=== PATIENT | female | born 1935 | race Caucasian/White ===

== ENCOUNTER 2018-02-07 12:19 | Emergency (ER) | payer MEDICARE ==
[~2018-02-07] VITALS: Ht 172.7 cm; Wt 158.8 kg
[~2018-02-07 12:19] MED LIST: ALBU3IS INH; ALBU90OI INH; AMOCLA500 PO; AMOX500; AMOX500 PO; ASPI325; ASPI325EC PO; ATOR10 PO; AZIT250 PO; AZIT500 PO; Augmentin 875-1 EACH PO; DOXY100 PO; FLUT.05NI; HYDACE5; HYDCHL25 PO; HYDGUAL120 PO; IBUP200; MULVITMIND PO; OXYACE5T PO; OXYGEN USE; PRED20 PO; PROCODE120 PO; RXOXYACE PO; RXPROM25 PO; SPIHYD; SULTRIDS PO; TAMS.4ER PO; VERA240ER; VERA240ER PO
== END 2018-02-07 13:56 | disposition home or self-care (01) ==
LOC: ER 12:19
DX: J34.89 Other specified disorders of nose and nasal sinuses (principal); I10 Essential (primary) hypertension; J44.9 Chronic obstructive pulmonary disease, unspecified; Z87.01 Personal history of pneumonia (recurrent); Z88.1 Allergy status to other antibiotic agents; Z88.8 Allergy status to other drugs, medicaments and biological substances; Z79.51 Long term (current) use of inhaled steroids; Z79.82 Long term (current) use of aspirin; Z79.899 Other long term (current) drug therapy
CPT/HCPCS: 99282

== ENCOUNTER 2018-03-10 18:35 | Inpatient (IN) | payer MEDICARE ==
[~2018-03-10] VITALS: Ht 172.7 cm; Wt 155.7 kg
[~2018-03-10 18:35] MED LIST changes: +ASPI325 PO
[2018-03-10 20:00] LABS: BASOPHILS ABSOLUTE AUTO 0.02 K/mm3 (0.00-0.23); BASOPHILS PERCENT AUTO 0 % (0-2); EOSINOPHILS ABSOLUTE AUTO 0.26 K/mm3 (0.00-0.68); EOSINOPHILS PERCENT AUTO 3 % (0-6); Hematocrit 40.3 % (33.0-51.0); Hemoglobin 12.4 g/dL (11.5-16.0); IMMATURE GRAN ABSOLUTE AUTO 0.04 K/mm3 (0.00-0.10); IMMATURE GRAN PERCENT AUTO 0 % (0-1); LYMPHOCYTES ABSOLUTE AUTO 1.65 K/mm3 (0.84-5.20); LYMPHOCYTES PERCENT AUTO 16 % (21-46); MONOCYTES PERCENT AUTO 13 % (4-13); Mean Corpuscular HGB 29.3 pg (26.0-34.0); Mean Corpuscular HGB Conc 30.8 g/dL (31.5-36.5); Mean Corpuscular Volume 95 fL (80-100); Mean Platelet Volume 11.5 fL (9.1-12.4); NEUTROPHILS ABSOLUTE AUTO 6.89 K/mm3 (1.96-9.15); NEUTROPHILS PERCENT AUTO 68 % (41-73); Platelet Count 129 K/mm3 (150-400); RDW Coefficient Variation 14.1 % (11.7-14.2); RDW Standard Deviation 49.3 fL (35.1-46.3); Red Blood Cell Count 4.23 M/mm3 (3.80-5.20); White Blood Cell Count 10.16 K/mm3 (4.00-11.30)
[2018-03-10 20:30] LABS: Alanine Aminotransfer (ALT/SGP 10 U/L (12-78); Albumin, Blood 2.9 g/dL (3.4-5.0); Albumin/Globulin Ratio 0.7 (0.8-1.8); Alk Phos 80 U/L (50-136); Anion Gap 6 mmol/L (6-16); Aspartate Aminotrans (AST/SGOT 8 U/L (12-37); Bilirubin, Total 1.5 mg/dL (0.1-1.0); Blood Urea Nitrogen 17 mg/dL (8-24); CO2, Blood 29 mmol/L (21-32); Calcium, Blood 8.8 mg/dL (8.5-10.1); Chloride, Blood 112 mmol/L (98-108); Creatinine, Blood 0.74 mg/dL (0.40-1.00); Glomerular Filtration Rate >60 (60-); Glucose, Blood 119 mg/dL (70-99); Potassium, Blood 3.8 mmol/L (3.5-5.5); Sodium, Blood 147 mmol/L (136-145); Total Protein, Blood 6.9 g/dL (6.4-8.2); Troponin I <0.015 ng/mL (0.000-0.040)
[2018-03-10] MEDS ORDERED: ESCI10 PO (20:56)
[2018-03-10] MEDS ORDERED: CLON.5 PO (20:56)
[2018-03-10] MEDS ORDERED: FURO20 PO (20:57)
[2018-03-10] MEDS ORDERED: POTCHL10ER PO (20:57)
[2018-03-10 23:43] LABS: Adenovirus Not Detected (NOT DETECT); Bordetella pertussis Not Detected (NOT DETECT); Chlamydophila pneumoniae Not Detected (NOT DETECT); Coronavirus 229E Not Detected (NOT DETECT); Coronavirus HKU1 Not Detected (NOT DETECT); Coronavirus NL63 Not Detected (NOT DETECT); Coronavirus OC43 Not Detected (NOT DETECT); Human Metapneumovirus Not Detected (NOT DETECT); Human Rhinovirus/Enterovirus Not Detected (NOT DETECT); Influenza A/2009-H1 Not Detected (NOT DETECT); Influenza A/H1 Not Detected (NOT DETECT); Influenza A/H3 Not Detected (NOT DETECT); Influenza B Not Detected (NOT DETECT); Mycoplasma pneumoniae Not Detected (NOT DETECT); Parainfluenza Virus 1 Not Detected (NOT DETECT); Parainfluenza Virus 2 Not Detected (NOT DETECT); Parainfluenza Virus 3 Not Detected (NOT DETECT); Parainfluenza Virus 4 Not Detected (NOT DETECT); Respiratory Syncytial Virus Not Detected (NOT DETECT)
[2018-03-11 00:31] LABS: Influenza A Negative (NEGATIVE); Influenza B Negative (NEGATIVE)
[2018-03-11 01:27] LABS: Influenza A Not Detected (NOT DETECT)
[2018-03-11 05:03] LABS: Hematocrit 40.6 % (33.0-51.0); Hemoglobin 12.5 g/dL (11.5-16.0); Mean Corpuscular HGB 29.4 pg (26.0-34.0); Mean Corpuscular HGB Conc 30.8 g/dL (31.5-36.5); Mean Corpuscular Volume 96 fL (80-100); RDW Coefficient Variation 14.2 % (11.7-14.2); RDW Standard Deviation 50.1 fL (35.1-46.3); Red Blood Cell Count 4.25 M/mm3 (3.80-5.20); White Blood Cell Count 6.87 K/mm3 (4.00-11.30)
[2018-03-11 05:05] LABS: BASOPHILS ABSOLUTE AUTO 0.01 K/mm3 (0.00-0.23); BASOPHILS PERCENT AUTO 0 % (0-2); EOSINOPHILS ABSOLUTE AUTO 0.01 K/mm3 (0.00-0.68); EOSINOPHILS PERCENT AUTO 0 % (0-6); IMMATURE GRAN ABSOLUTE AUTO 0.05 K/mm3 (0.00-0.10); IMMATURE GRAN PERCENT AUTO 1 % (0-1); LYMPHOCYTES ABSOLUTE AUTO 0.78 K/mm3 (0.84-5.20); LYMPHOCYTES PERCENT AUTO 11 % (21-46); MONOCYTES ABSOLUTE AUTO 0.14 K/mm3 (0.16-1.47); MONOCYTES PERCENT AUTO 2 % (4-13); NEUTROPHILS PERCENT AUTO 86 % (41-73)
[2018-03-11 05:07] LABS: Mean Platelet Volume 11.1 fL (9.1-12.4); Platelet Count 131 K/mm3 (150-400)
[2018-03-11 05:25] LABS: Albumin, Blood 2.8 g/dL (3.4-5.0); Anion Gap 3 mmol/L (6-16); Blood Urea Nitrogen 16 mg/dL (8-24); Bun/Creatinine Ratio 23.8 (12.0-20.0); CO2, Blood 30 mmol/L (21-32); Calcium, Blood 8.7 mg/dL (8.5-10.1); Chloride, Blood 111 mmol/L (98-108); Creatinine, Blood 0.67 mg/dL (0.40-1.00); Glomerular Filtration Rate >60 (60-); Glucose, Blood 145 mg/dL (70-99); Phosphorus, Blood 2.5 mg/dL (2.5-4.9); Potassium, Blood 4.1 mmol/L (3.5-5.5); Sodium, Blood 144 mmol/L (136-145)
[2018-03-13] MEDS ORDERED: DOXY100 PO (10:29)
[2018-03-13] MEDS ORDERED: CEPH500 PO (10:29)
== END 2018-03-13 13:30 | disposition home or self-care (01) | DRG 177 ==
LOC: ER 18:35 → MEDS 20:43 → ENPENDDIS 03-13 09:30 → MEDS 03-13 13:30
PROVIDERS: Emergency Medicine; Family Medicine
DX: J69.0 Pneumonitis due to inhalation of food and vomit (principal); J96.01 Acute respiratory failure with hypoxia; J44.0 Chronic obstructive pulmonary disease with (acute) lower respiratory infection; L03.115 Cellulitis of right lower limb; Z68.43 Body mass index [BMI] 50.0-59.9, adult; L03.116 Cellulitis of left lower limb; J44.1 Chronic obstructive pulmonary disease with (acute) exacerbation; J18.9 Pneumonia, unspecified organism; J84.9 Interstitial pulmonary disease, unspecified; I10 Essential (primary) hypertension; I89.0 Lymphedema, not elsewhere classified; G47.33 Obstructive sleep apnea (adult) (pediatric); E66.01 Morbid (severe) obesity due to excess calories
CPT/HCPCS: 36415; 71045; 71260; 80053; 80069; 83605; 83880; 84484; 85025; 85379; 87040; 87486; 87581; 87633; 87798; 87804; 93005; 93010; 93970; 94640; 94760; 94761; 96374; 96375; 99285; C1751; J0456; J0696; J1650; J2543; J2920; J2930; J7030; J7050; Q9967

== ENCOUNTER 2018-06-28 12:00 | Inpatient (IN) | payer MEDICARE ==
[~2018-06-28] VITALS: Ht 172.7 cm; Wt 155.7 kg
[~2018-06-28 12:00] MED LIST changes: -ASPI325 PO; +Aspirin EC81 MG PO; +CEPH500 PO; +CLON.5 PO; +ESCI10 PO; +FURO20 PO; +POTCHL10ER PO
[2018-06-28 12:44] LABS: BASOPHILS ABSOLUTE AUTO 0.02 K/mm3 (0.00-0.23); BASOPHILS PERCENT AUTO 0 % (0-2); EOSINOPHILS ABSOLUTE AUTO 0.25 K/mm3 (0.00-0.68); EOSINOPHILS PERCENT AUTO 4 % (0-6); Hematocrit 41.9 % (33.0-51.0); Hemoglobin 12.8 g/dL (11.5-16.0); IMMATURE GRAN ABSOLUTE AUTO 0.02 K/mm3 (0.00-0.10); IMMATURE GRAN PERCENT AUTO 0 % (0-1); LYMPHOCYTES ABSOLUTE AUTO 1.34 K/mm3 (0.84-5.20); LYMPHOCYTES PERCENT AUTO 24 % (21-46); MONOCYTES ABSOLUTE AUTO 0.57 K/mm3 (0.16-1.47); MONOCYTES PERCENT AUTO 10 % (4-13); Mean Corpuscular HGB Conc 30.5 g/dL (31.5-36.5); Mean Corpuscular Volume 95 fL (80-100); Mean Platelet Volume 10.7 fL (9.1-12.4); NEUTROPHILS ABSOLUTE AUTO 3.44 K/mm3 (1.96-9.15); NEUTROPHILS PERCENT AUTO 61 % (41-73); Platelet Count 160 K/mm3 (150-400); RDW Coefficient Variation 13.9 % (11.7-14.2); RDW Standard Deviation 48.4 fL (35.1-46.3); Red Blood Cell Count 4.41 M/mm3 (3.80-5.20); White Blood Cell Count 5.64 K/mm3 (4.00-11.30)
[2018-06-28 13:00] LABS: Alanine Aminotransfer (ALT/SGP 12 U/L (12-78); Albumin, Blood 2.9 g/dL (3.4-5.0); Albumin/Globulin Ratio 0.7 (0.8-1.8); Alk Phos 89 U/L (50-136); Anion Gap 5 mmol/L (6-16); Aspartate Aminotrans (AST/SGOT 13 U/L (12-37); Bilirubin, Total 0.8 mg/dL (0.1-1.0); Blood Urea Nitrogen 17 mg/dL (8-24); CO2, Blood 30 mmol/L (21-32); Calcium, Blood 8.8 mg/dL (8.5-10.1); Chloride, Blood 112 mmol/L (98-108); Creatinine, Blood 0.71 mg/dL (0.40-1.00); Globulin, Blood 4.2 g/dL (2.2-4.0); Glomerular Filtration Rate >60 (60-); Glucose, Blood 109 mg/dL (70-99); Lactate Dehydrogenase (Ld),Bld 175 U/L (100-240); Potassium, Blood 3.7 mmol/L (3.5-5.5); Sodium, Blood 147 mmol/L (136-145); Total Protein, Blood 7.1 g/dL (6.4-8.2); Troponin I <0.015 ng/mL (0.000-0.040)
[2018-06-29 05:09] LABS: BASOPHILS ABSOLUTE AUTO 0.01 K/mm3 (0.00-0.23); BASOPHILS PERCENT AUTO 0 % (0-2); EOSINOPHILS PERCENT AUTO 0 % (0-6); Hematocrit 39.7 % (33.0-51.0); Hemoglobin 12.2 g/dL (11.5-16.0); IMMATURE GRAN ABSOLUTE AUTO 0.03 K/mm3 (0.00-0.10); IMMATURE GRAN PERCENT AUTO 1 % (0-1); LYMPHOCYTES ABSOLUTE AUTO 0.83 K/mm3 (0.84-5.20); LYMPHOCYTES PERCENT AUTO 19 % (21-46); MONOCYTES ABSOLUTE AUTO 0.09 K/mm3 (0.16-1.47); MONOCYTES PERCENT AUTO 2 % (4-13); Mean Corpuscular HGB 28.6 pg (26.0-34.0); Mean Corpuscular HGB Conc 30.7 g/dL (31.5-36.5); Mean Corpuscular Volume 93 fL (80-100); Mean Platelet Volume 11.1 fL (9.1-12.4); NEUTROPHILS ABSOLUTE AUTO 3.34 K/mm3 (1.96-9.15); NEUTROPHILS PERCENT AUTO 78 % (41-73); Platelet Count 142 K/mm3 (150-400); RDW Coefficient Variation 13.5 % (11.7-14.2); RDW Standard Deviation 46.3 fL (35.1-46.3); Red Blood Cell Count 4.26 M/mm3 (3.80-5.20)
[2018-06-29 05:32] LABS: Anion Gap 6 mmol/L (6-16); Blood Urea Nitrogen 18 mg/dL (8-24); Bun/Creatinine Ratio 26.6 (12.0-20.0); CO2, Blood 31 mmol/L (21-32); Calcium, Blood 8.7 mg/dL (8.5-10.1); Chloride, Blood 110 mmol/L (98-108); Creatinine, Blood 0.68 mg/dL (0.40-1.00); Glomerular Filtration Rate >60 (60-); Glucose, Blood 160 mg/dL (70-99); Potassium, Blood 4.1 mmol/L (3.5-5.5); Sodium, Blood 147 mmol/L (136-145)
[2018-06-30] MEDS ORDERED: Flonase 0.05% N16 GM (11:09)
[2018-06-30] MEDS ORDERED: DULERA 200 MCG/13 GM INH (11:09)
[2018-06-30] MEDS ORDERED: PRED10 PO (11:11)
[2018-06-30] MEDS ORDERED: TIOT18 INH (11:12)
== END 2018-06-30 13:38 | disposition home or self-care (01) | DRG 189 ==
LOC: ER 12:00 → MEDS 15:49
PROVIDERS: Internal Medicine; Physician Assistant
DX: J96.21 Acute and chronic respiratory failure with hypoxia (principal); J44.1 Chronic obstructive pulmonary disease with (acute) exacerbation; Z68.43 Body mass index [BMI] 50.0-59.9, adult; E66.2 Morbid (severe) obesity with alveolar hypoventilation; I50.32 Chronic diastolic (congestive) heart failure; J84.9 Interstitial pulmonary disease, unspecified; I89.0 Lymphedema, not elsewhere classified; I11.0 Hypertensive heart disease with heart failure
CPT/HCPCS: 36415; 71046; 80048; 80053; 83615; 83880; 84484; 85025; 93005; 93010; 93306; 94640; 94644; 94760; 94761; 94762; 96365; 96366; 96375; 99285-25; J1650; J2930; J3475

== ENCOUNTER 2018-08-01 14:13 | Emergency (ER) | payer MEDICARE ==
[~2018-08-01] VITALS: Ht 172.7 cm; Wt 158.8 kg
[~2018-08-01 14:13] MED LIST changes: +DULERA 200 MCG/13 GM INH; +Flonase 0.05% N16 GM; +PRED10 PO; +TIOT18 INH
[2018-08-01] MEDS ORDERED: Augmentin 875-1 EACH PO (16:20)
[2018-08-01] MEDS ORDERED: PRED20 PO (16:20)
== END 2018-08-01 17:15 | disposition home or self-care (01) ==
LOC: ER 14:13
DX: J44.1 Chronic obstructive pulmonary disease with (acute) exacerbation (principal); J32.9 Chronic sinusitis, unspecified; I10 Essential (primary) hypertension; Z88.8 Allergy status to other drugs, medicaments and biological substances; Z88.1 Allergy status to other antibiotic agents; Z79.899 Other long term (current) drug therapy; Z79.82 Long term (current) use of aspirin
CPT/HCPCS: 36415; 71046; 93005; 93010; 94640; 96374; 99283-25; J2930

== ENCOUNTER 2018-08-11 13:20 | Emergency (ER) | payer MEDICARE ==
[~2018-08-11] VITALS: Ht 172.7 cm; Wt 158.8 kg
[2018-08-11] MEDS ORDERED: LOSA25 (13:47)
== END 2018-08-11 15:08 | disposition home or self-care (01) ==
LOC: ER 13:20
DX: M79.662 Pain in left lower leg (principal); I10 Essential (primary) hypertension; Z88.8 Allergy status to other drugs, medicaments and biological substances; Z88.1 Allergy status to other antibiotic agents; Z79.899 Other long term (current) drug therapy; Z79.82 Long term (current) use of aspirin; Z79.51 Long term (current) use of inhaled steroids
CPT/HCPCS: 93971; 99284-25

== ENCOUNTER 2019-01-14 18:39 | Emergency (ER) | payer MEDICARE ==
[~2019-01-14] VITALS: Ht 172.7 cm; Wt 158.8 kg
[~2019-01-14 18:39] MED LIST changes: +AMLO5 PO; +BENZ100A PO; +LOSA25; +LOSA50 PO
[2019-01-14 19:24] LABS: BASOPHILS ABSOLUTE AUTO 0.01 K/mm3 (0.00-0.23); BASOPHILS PERCENT AUTO 0 % (0-2); EOSINOPHILS PERCENT AUTO 3 % (0-6); Hematocrit 37.2 % (33.0-51.0); Hemoglobin 11.1 g/dL (11.5-16.0); IMMATURE GRAN ABSOLUTE AUTO 0.02 K/mm3 (0.00-0.10); IMMATURE GRAN PERCENT AUTO 1 % (0-1); LYMPHOCYTES ABSOLUTE AUTO 0.74 K/mm3 (0.84-5.20); LYMPHOCYTES PERCENT AUTO 20 % (21-46); MONOCYTES ABSOLUTE AUTO 0.78 K/mm3 (0.16-1.47); MONOCYTES PERCENT AUTO 22 % (4-13); Mean Corpuscular HGB 28.5 pg (26.0-34.0); Mean Corpuscular HGB Conc 29.8 g/dL (31.5-36.5); Mean Corpuscular Volume 96 fL (80-100); Mean Platelet Volume 10.7 fL (9.1-12.4); NEUTROPHILS ABSOLUTE AUTO 1.98 K/mm3 (1.96-9.15); NEUTROPHILS PERCENT AUTO 54 % (41-73); Platelet Count 109 K/mm3 (150-400); RDW Coefficient Variation 14.7 % (11.7-14.2); RDW Standard Deviation 51.8 fL (35.1-46.3); Red Blood Cell Count 3.89 M/mm3 (3.80-5.20); White Blood Cell Count 3.63 K/mm3 (4.00-11.30)
[2019-01-14 20:01] LABS: Alanine Aminotransfer (ALT/SGP 11 U/L (12-78); Albumin, Blood 2.9 g/dL (3.4-5.0); Albumin/Globulin Ratio 0.7 (0.8-1.8); Alk Phos 75 U/L (50-136); Anion Gap 1 mmol/L (6-16); Aspartate Aminotrans (AST/SGOT 9 U/L (12-37); Bilirubin, Total 0.6 mg/dL (0.1-1.0); Blood Urea Nitrogen 18 mg/dL (8-24); Bun/Creatinine Ratio 26.4 (12.0-20.0); CO2, Blood 35 mmol/L (21-32); Calcium, Blood 8.7 mg/dL (8.5-10.1); Chloride, Blood 109 mmol/L (98-108); Creatinine, Blood 0.68 mg/dL (0.40-1.00); Globulin, Blood 3.9 g/dL (2.2-4.0); Glomerular Filtration Rate >60 (60-); Glucose, Blood 87 mg/dL (70-99); Sodium, Blood 145 mmol/L (136-145); Total Protein, Blood 6.8 g/dL (6.4-8.2)
[2019-01-14 20:52] LABS: Influenza A Positive (NEGATIVE); Influenza B Negative (NEGATIVE)
[2019-01-14] MEDS ORDERED: Tamiflu75 MG PO (21:09)
== END 2019-01-14 21:55 | disposition home or self-care (01) ==
LOC: ER 18:39
PROVIDERS: Emergency Medicine
DX: J10.00 Influenza due to other identified influenza virus with unspecified type of pneumonia (principal); J44.9 Chronic obstructive pulmonary disease, unspecified; I10 Essential (primary) hypertension; Z79.899 Other long term (current) drug therapy; Z79.82 Long term (current) use of aspirin
CPT/HCPCS: 36415; 71046; 80053; 83880; 84484; 85025; 87804; 93005; 93010; 94640; 99284-25

== ENCOUNTER 2019-07-20 00:26 | Day surgery (SDC) | payer MEDICARE ==
[~2019-07-20 00:26] MED LIST changes: +Tamiflu75 MG PO
== END 2019-07-20 23:09 | disposition home or self-care (01) ==
LOC: WOUND 00:26
DX: I89.0 Lymphedema, not elsewhere classified (principal); M79.671 Pain in right foot; I11.0 Hypertensive heart disease with heart failure; I50.32 Chronic diastolic (congestive) heart failure; E66.01 Morbid (severe) obesity due to excess calories; Z68.43 Body mass index [BMI] 50.0-59.9, adult; Z88.1 Allergy status to other antibiotic agents; Z91.048 Other nonmedicinal substance allergy status
CPT/HCPCS: G0463

== ENCOUNTER 2019-12-03 10:42 | Inpatient (IN) | payer MEDICARE ==
[~2019-12-03] VITALS: Ht 172.7 cm; Wt 157.4 kg
[2019-12-03] MEDS ORDERED: BUDE6HFA INH ×2 (10:59→18:08)
[2019-12-03] MEDS ORDERED: Bystolic2.5 MG PO (11:00)
[2019-12-03] MEDS ORDERED: VERAPAMIL SR240 M1 PO (11:00)
[2019-12-03] MEDS ORDERED: K-Dur10 MEQ (11:00)
[2019-12-03 11:46] LABS: BASOPHILS ABSOLUTE AUTO 0.02 K/mm3 (0.00-0.23); BASOPHILS PERCENT AUTO 0 % (0-2); EOSINOPHILS ABSOLUTE AUTO 0.18 K/mm3 (0.00-0.68); EOSINOPHILS PERCENT AUTO 2 % (0-6); Hematocrit 35.6 % (33.0-51.0); Hemoglobin 10.6 g/dL (11.5-16.0); IMMATURE GRAN ABSOLUTE AUTO 0.03 K/mm3 (0.00-0.10); IMMATURE GRAN PERCENT AUTO 0 % (0-1); LYMPHOCYTES ABSOLUTE AUTO 1.42 K/mm3 (0.84-5.20); LYMPHOCYTES PERCENT AUTO 19 % (21-46); MONOCYTES ABSOLUTE AUTO 0.88 K/mm3 (0.16-1.47); MONOCYTES PERCENT AUTO 12 % (4-13); Mean Corpuscular HGB 28.6 pg (26.0-34.0); Mean Corpuscular HGB Conc 29.8 g/dL (31.5-36.5); Mean Corpuscular Volume 96 fL (80-100); Mean Platelet Volume 11.1 fL (9.1-12.4); NEUTROPHILS ABSOLUTE AUTO 4.94 K/mm3 (1.96-9.15); NEUTROPHILS PERCENT AUTO 66 % (41-73); Platelet Count 161 K/mm3 (150-400); RDW Coefficient Variation 14.1 % (11.7-14.2); RDW Standard Deviation 50.1 fL (35.1-46.3); White Blood Cell Count 7.47 K/mm3 (4.00-11.30)
[2019-12-03 11:58] LABS: Alanine Aminotransfer (ALT/SGP 12 U/L (12-78); Albumin, Blood 2.6 g/dL (3.4-5.0); Albumin/Globulin Ratio 0.5 (0.8-1.8); Alk Phos 89 U/L (50-136); Anion Gap 3 mmol/L (6-16); Aspartate Aminotrans (AST/SGOT 17 U/L (12-37); Blood Urea Nitrogen 19 mg/dL (8-24); Bun/Creatinine Ratio 22.5 (12.0-20.0); CO2, Blood 32 mmol/L (21-32); Calcium, Blood 9.3 mg/dL (8.5-10.1); Chloride, Blood 107 mmol/L (98-108); Creatinine, Blood 0.84 mg/dL (0.40-1.00); Glomerular Filtration Rate >60 (60-); Glucose, Blood 107 mg/dL (70-99); Sodium, Blood 142 mmol/L (136-145); Total Protein, Blood 7.6 g/dL (6.4-8.2)
--- NOTE | 2019-12-03 14:17 | NUR ---
RECEIEVED REPORT FROM YVETTE CHAN RN. PATIENT TO TRANSFER TO ROOM 304.
[2019-12-03 14:56] LABS: Percent Saturation 9.8 % (15.0-50.0)
[2019-12-03 15:24] LABS: Source, Urine Clean Catch
[2019-12-03 15:46] LABS: Bilirubin, Urine Neg (Neg); Blood, Urine Neg (Neg); Glucose Qualitative, Urine Neg (Neg); Ketones, Urine Neg (Neg); Leukocyte Esterase, Urine Neg (Neg); Nitrite, Urine Neg (Neg); Protein, Urine Neg (Neg); Urobilinogen, Urine NORM (Normal)
[2019-12-03 15:59] LABS: Appearance, Urine Clear (Clear); Color, Urine No Color (P-Yellow)
[2019-12-03] MEDS ORDERED: NYSTRITC TOP (16:06)
--- NOTE | 2019-12-03 16:54 | NUR ---
SHIFT SUMMARY PATIENTS ADMISSION H&P, ASSESSMENTS AND MED REQ COMPLETED. PATIENT DENIES PAIN UNLESS LEGS ARE TOUCHED, AND THEY ARE VERY PAINFUL. HARGROVE PLACED D/T PATIENT'S LIMITED ABILITY TO MOVE/ROLL EVEN WITH STAFF ASSIST. SHE IS RECIEVING HEAVY DOSES OF DIURETICS AND PUTTING OUT MUCH URINE. BILAT LEGS AND FEET VERY EDEMETOUS WITH LYMPHEDEMA PRESENT. PATIENT STATES HER TREATMENT FOR HER LEGS ARE JUST THE TUBI-GAS JOCKEY SOCKS SHE WAS WEARING AT ARRIVAL. ALL IN ALL SKIN LOOKS ROSITA GOOD, EVEN IN THE FOLDS (WITH THE EXCEPTION OF THE MENTIONED BLE). THE PATIENT IS A/O. COOPERATIVE WITH STAFF AND CALLS FOR STAFF ASSIST NEEDED. PATIENT STARTED ON IV ABX WITHOUT S/SX OF ADVERSE REACTIONS NOTED OR REPORTED. WILL CONTINUE TO MONITOR AND PROVIDE CARE NEEDED.
[2019-12-03] MEDS ORDERED: FURO20 PO (18:07)
[2019-12-03] MEDS ORDERED: POTCHL20ER PO (18:07)
[2019-12-03] MEDS ORDERED: VERA240ER PO (18:08)
[2019-12-03] MEDS ORDERED: ASPI81CH PO (18:08)
--- NOTE | 2019-12-03 18:13 | NUR ---
REVIEWED PATIENT MEDS WITH PATIENT. SHE STATED WANTING TO TAKE VERAPAMIL AT BEDTIME, NOT IN THE AM. CALLED AND ASKED DR GOLDSMITH AT 181 IF THAT WAS OKAY AND HE WAS FINE WITH THE CHANGE.
--- NOTE | 2019-12-03 18:34 | NUR ---
PATIENT REFUSES TO TAKE SCHEDULED COREG, STATES SHE DOESNT TAKE IT AT HOME.
[2019-12-04 04:45] LABS: BASOPHILS ABSOLUTE AUTO 0.02 K/mm3 (0.00-0.23); BASOPHILS PERCENT AUTO 0 % (0-2); EOSINOPHILS ABSOLUTE AUTO 0.18 K/mm3 (0.00-0.68); EOSINOPHILS PERCENT AUTO 3 % (0-6); Hematocrit 32.6 % (33.0-51.0); Hemoglobin 9.3 g/dL (11.5-16.0); IMMATURE GRAN ABSOLUTE AUTO 0.01 K/mm3 (0.00-0.10); IMMATURE GRAN PERCENT AUTO 0 % (0-1); LYMPHOCYTES ABSOLUTE AUTO 1.11 K/mm3 (0.84-5.20); LYMPHOCYTES PERCENT AUTO 21 % (21-46); MONOCYTES ABSOLUTE AUTO 0.76 K/mm3 (0.16-1.47); MONOCYTES PERCENT AUTO 14 % (4-13); Mean Corpuscular HGB 28.4 pg (26.0-34.0); Mean Corpuscular HGB Conc 28.5 g/dL (31.5-36.5); Mean Platelet Volume 11.5 fL (9.1-12.4); NEUTROPHILS ABSOLUTE AUTO 3.18 K/mm3 (1.96-9.15); NEUTROPHILS PERCENT AUTO 61 % (41-73); Platelet Count 147 K/mm3 (150-400); RDW Coefficient Variation 14.1 % (11.7-14.2); RDW Standard Deviation 52.3 fL (35.1-46.3); Red Blood Cell Count 3.27 M/mm3 (3.80-5.20); White Blood Cell Count 5.26 K/mm3 (4.00-11.30)
[2019-12-04 04:48] LABS: Mean Corpuscular Volume 100 fL (80-100)
[2019-12-04 05:04] LABS: Anion Gap 4 mmol/L (6-16); Blood Urea Nitrogen 17 mg/dL (8-24); CO2, Blood 31 mmol/L (21-32); Calcium, Blood 8.6 mg/dL (8.5-10.1); Chloride, Blood 107 mmol/L (98-108); Creatinine, Blood 0.85 mg/dL (0.40-1.00); Glomerular Filtration Rate >60 (60-); Glucose, Blood 105 mg/dL (70-99); Potassium, Blood 3.6 mmol/L (3.5-5.5); Sodium, Blood 142 mmol/L (136-145)
--- NOTE | 2019-12-04 06:09 | NUR ---
NOC SHIFT SUMMARY PT IS PLEASANT AND COOPERATIVE WITH CARE. ADMITTED FOR BLE CELLULITIS AND LYMPHEDEMA. TREATED FOR BACK PAIN PER EMAR. VSS. NO ACUTE CHANGES NOTED THIS NIGHT. PT IS SNORING SOFTLY AT THIS TIME.
--- NOTE | 2019-12-04 12:29 | NUR ---
PLACED EGG CRATE ON PATIENT MATRESS DUE TO COMPLAINTS OF LOWER BACK PAIN. PATIENT NOT TOO SURE IF IT'S MAKING THE BACK PAIN BETTER OR WORSE BUT IS GIVING IT A CHANCE. NEW ORDERS VERBALLY GIVEN BY DR GOLDSMITH FOR LIDODERM PATCH TO BE PLACED TO THE LOWER BACK, IBUPROFEN Q8PRN, AND CHILO-MOSS CREAM PRN. PATIENT ALSO HAS HEATING K-PAD TO SITE. BLE ELEVATED ON PILLOWS. CHANGED PATIENTS DIET TO REGULAR PER PATIENT REQUEST AND DR GOLDSMITH OK.
--- NOTE | 2019-12-04 15:38 | NUR ---
SHIFT SUMMARY THE PATIENT HAS HAD AN UNEVENTFUL SHIFT. SHE HAS BACK PAIN THAT DISAPATES WHEN SHE IS NOT INVOLVED IN PHYSICAL ACTIVITY. SHE HAS DENIED THE NEED FOR PAIN MEDICATION ON THIS SHIFT. I DID PLACE A LIDOCAINE PATCH TO HER LL BACK AND THAT HAS SEEMED TO HELP; SHE ALSO CONTINUES TO USE THE K-PAD. THE PATIENT CONTINUES TO GET IV ABX WITHOUT S/SX OF ADVERSE REACTIONS NOTED OR REPORTED. VITALS HAVE BEEN STABLE. BLE ELEVATED ON PILLOWS WHILE IN BED. NO ACUTE CHANGES NOTED OR REPORTED DURING THIS SHIFT. DR GOLDSMITH WAS INFORMED THAT PATIENT REFUSES TO TAKE THE PRESCRIBED COREG AND PEPCID DURING HIS ROUNDS ON THE FLOOR THIS MORNING. WILL CONTINUE TO MONITOR AND PROVIDE CARE TO PATIENT NEEDED.
--- NOTE | 2019-12-04 23:49 | NUR ---
PT PLEASANT AND COOPERATIVE WITH CARE. COMPLAINED OF SOME LEG AND LOW BACK PAIN. SHE WAS REPOSITIONED. ALSO HAD LOW GRADE FEVER OF 100.1 TREATED BOTH PAIN AND FEVER WITH T3 AND RECHECK SHOWED IMPROVED PAIN AND TEMP OF 97.6. PRESENTLY HAS NO COMPLAINTS AND APPEARS COMFORTABLE. WILL CONTINUE TO MONITOR.
--- NOTE | 2019-12-05 04:17 | NUR ---
NOC SHIFT SUMMARY PT HAS SLEPT OF AND ON THROUGH THE NIGHT. RESP E/U ON 2LNC. VSS. TREATED FOR LOW BACK AND LEG PAIN WELL LOW GRADE TEMP TO GOOD EFFECT. SHE HAS A HARGROVE CATH IN PLACE. A LEAK OCCURED AND PT REQUIRED A BED CHANGE. WET AND DRY SUGAR BIN OPERATOR INFORMED ME OF THIS. I ASSESSED THE CATHETER AND IT APPEARS TO STILL BE PLACED PROPPERLY. CATH BAG IS SLOWELY FILLING WITH CLEAR YELLOW URINE. LEGS APPEAR SIMILAR TO YESTERDAY. WILL CONTINUE TO MONITOR.
[2019-12-05 04:58] LABS: BASOPHILS ABSOLUTE AUTO 0.02 K/mm3 (0.00-0.23); BASOPHILS PERCENT AUTO 0 % (0-2); EOSINOPHILS ABSOLUTE AUTO 0.32 K/mm3 (0.00-0.68); EOSINOPHILS PERCENT AUTO 6 % (0-6); Hematocrit 31.2 % (33.0-51.0); Hemoglobin 9.4 g/dL (11.5-16.0); IMMATURE GRAN ABSOLUTE AUTO 0.03 K/mm3 (0.00-0.10); IMMATURE GRAN PERCENT AUTO 1 % (0-1); LYMPHOCYTES ABSOLUTE AUTO 1.04 K/mm3 (0.84-5.20); LYMPHOCYTES PERCENT AUTO 19 % (21-46); MONOCYTES ABSOLUTE AUTO 0.71 K/mm3 (0.16-1.47); MONOCYTES PERCENT AUTO 13 % (4-13); Mean Corpuscular HGB 29.3 pg (26.0-34.0); Mean Corpuscular HGB Conc 30.1 g/dL (31.5-36.5); Mean Platelet Volume 11.2 fL (9.1-12.4); NEUTROPHILS ABSOLUTE AUTO 3.37 K/mm3 (1.96-9.15); NEUTROPHILS PERCENT AUTO 62 % (41-73); Platelet Count 170 K/mm3 (150-400); RDW Coefficient Variation 13.7 % (11.7-14.2); RDW Standard Deviation 49.3 fL (35.1-46.3); Red Blood Cell Count 3.21 M/mm3 (3.80-5.20); White Blood Cell Count 5.49 K/mm3 (4.00-11.30)
[2019-12-05 05:12] LABS: Mean Corpuscular Volume 97 fL (80-100)
[2019-12-05 05:25] LABS: Anion Gap 3 mmol/L (6-16); Blood Urea Nitrogen 14 mg/dL (8-24); Bun/Creatinine Ratio 16.9 (12.0-20.0); CO2, Blood 35 mmol/L (21-32); Calcium, Blood 8.5 mg/dL (8.5-10.1); Chloride, Blood 104 mmol/L (98-108); Creatinine, Blood 0.83 mg/dL (0.40-1.00); Glomerular Filtration Rate >60 (60-); Glucose, Blood 99 mg/dL (70-99); Potassium, Blood 3.7 mmol/L (3.5-5.5); Sodium, Blood 142 mmol/L (136-145)
--- NOTE | 2019-12-05 12:06 | NUR ---
Patient gave permission for care tomorrow from director of emergency nursing. CANDICE
--- NOTE | 2019-12-05 17:50 | NUR ---
SUMMARY PT SITTING UP AT THE EDGE OF THE BED EATING DINNER, PT WAS UP IN THE CHAIR FOR MOST OF THE DAY, SHE HAD VISITS FROM HER FILM SPOOLER AND HER , PT HAS BEEN COOPERATIVE WITH CARE T/O THE DAY, VSS, NO ACUTE CHANGES, WILL CONT TO MONITOR
--- NOTE | 2019-12-05 20:00 | NUR ---
PT IN BED WATCHING TV AND DENIES PAIN, SOB, NAUSEA AND ALL OTHER COMPLAINTS.
--- NOTE | 2019-12-05 23:54 | NUR ---
TYLENOL WAS RECIEVED AT 2316 AND TEMP GRADUALLY COMING DOWN, NOW 100.1. STAFF CONTINUING TO MONITOR CLOSELY.
--- NOTE | 2019-12-06 06:08 | NUR ---
SUMMARY: A/OX4, SPECIFIES NEEDS AND ASSISTED W/BED REPOSITIONING PRN. SHE REMAINED IN BED THIS SHIFT BUT DAY RN REPORTED SHE'S SBA W/FWW. PT SLEPT MOST OF NOCTE BUT WAS MEDICATED FOR BLE PAIN R/T CELLULITIS W/TYLENOL #3 X1 FOR TOLERABLE RELIEF. LEGS REMAIN SWOLLEN AND RED W/RLE WORSE THEN LLE. LEGS ELEVATED ON PILLOWS AND PT REPORTS LEGS ARE ALWAYS EDEMATOUS R/T CHRONIC LYMPHADEMA BUT IMPROVED FROM ADMISSION. HARGROVE IS PATENT AND DRAINING AND NO STOOL INCONTINENCE OBSERVED. PT REFUSED PEPCID STATING HEART BURN/REFLEX IS A NON-ISSUE. NO ACUTE CHANGES, VSS/AFEBRILE. WCTM AND REPORT TO DAY RN.
[2019-12-06] MEDS ORDERED: Florastor250 MG PO (11:30)
[2019-12-06] MEDS ORDERED: Doxycycline Mo100 M1 PO (11:30)
[2019-12-06] MEDS ORDERED: CYCL10 PO (11:30)
--- NOTE | 2019-12-06 14:06 | NUR ---
SUMMARY/DISCHARGE PT DISCHARGED TO HOME, PT VERBALIZED UNDERSTANDING OF DISCHARGE INSTRUCTIONS, THERAPY WAS RECOMMENDING HOME HEALTH, PT AND HER SPOUSE DECLINED STATING THEY HAVE HAD HOME HEALTH IN THE PAST AND DID NOT FEEL IT WAS BENEFICIAL, DISCHARGE PLANNING SPOKE WITH AND WORKED WITH THE SPOUSE TO GET DME IN THE HOME, HOSPITAL BED, LIFT CHAIR, AND COMMODE, CLIENT EXPERIENCE CONSULTANT ALSO INVOLVED, TRANSPORT ARRANGED BY DISCHARGE PLANNING, BROUGHT IN THE PT'S WHEELCHAIR AND PORTABLE OXYGEN, PT TAKEN OUT SAFELY VIA WHEELCHAIR BY TRANSPORT COMPANY
== END 2019-12-06 13:58 | disposition home or self-care (01) | DRG 602 ==
LOC: ER 10:42 → MEDS 13:05 → ENPENDDIS 12-06 11:25 → MEDS 12-06 13:58
PROVIDERS: Emergency Medicine; ADMIT Family Medicine
DX: L03.115 Cellulitis of right lower limb (principal); I50.33 Acute on chronic diastolic (congestive) heart failure; I13.0 Hypertensive heart and chronic kidney disease with heart failure and stage 1 through stage 4 chronic kidney disease, or unspecified chronic kidney disease; E66.2 Morbid (severe) obesity with alveolar hypoventilation; Z68.43 Body mass index [BMI] 50.0-59.9, adult; J81.1 Chronic pulmonary edema; N18.9 Chronic kidney disease, unspecified; D63.8 Anemia in other chronic diseases classified elsewhere; I27.81 Cor pulmonale (chronic); J44.9 Chronic obstructive pulmonary disease, unspecified; L03.116 Cellulitis of left lower limb; G47.33 Obstructive sleep apnea (adult) (pediatric); Z86.73 Personal history of transient ischemic attack (TIA), and cerebral infarction without residual deficits; I89.0 Lymphedema, not elsewhere classified; E88.09 Other disorders of plasma-protein metabolism, not elsewhere classified
CPT/HCPCS: 36415; 73620; 80048; 80053; 81003; 82728; 83540; 83550; 84145; 84443; 85025; 86140; 92610; 93005; 93010; 94640; 94760; 96374; 97110; 97161; 97166; 97530; 97535; 99285-25; A9270; J0696; J1644; J1940; J7030

== ENCOUNTER 2021-12-21 02:14 | Emergency (ER) | payer MEDICARE ==
[~2021-12-21] VITALS: Ht 172.7 cm; Wt 154.2 kg
[~2021-12-21 02:14] MED LIST changes: +ATORVASTATIN CA20 MG PO; +Acetaminophen325 M1 PO; +Aspir 8181 MG PO; +BISA10S PR; +BUDE6HFA INH; +Bystolic2.5 MG PO; +CYCL10 PO; +DOCU100 PO; +Doxycycline Mo100 M1 PO; +Florastor250 MG PO; +GABA100 PO; +K-Dur10 MEQ; +MIRALAX17 GM PO; +NYSTRITC TOP; +POTCHL20ER PO; +SYMBICORT 80-10.2 GM INH; +VERAPAMIL SR240 M1 PO; +VISBIOME 112.51 EACH PO
[2021-12-21] MEDS ORDERED: ALBU2.5V5 (03:04)
[2021-12-21] MEDS ORDERED: LOSA25 PO (03:04)
[2021-12-21] MEDS ORDERED: PSEU120ER PO (03:05)
[2021-12-21 03:23] LABS: BASOPHILS ABSOLUTE AUTO 0.03 K/mm3 (0.00-0.23); BASOPHILS PERCENT AUTO 0 % (0-2); EOSINOPHILS PERCENT AUTO 0 % (0-6); Hematocrit 37.4 % (33.0-51.0); Hemoglobin 11.2 g/dL (11.5-16.0); IMMATURE GRAN ABSOLUTE AUTO 0.08 K/mm3 (0.00-0.10); IMMATURE GRAN PERCENT AUTO 1 % (0-1); LYMPHOCYTES ABSOLUTE AUTO 0.75 K/mm3 (0.84-5.20); LYMPHOCYTES PERCENT AUTO 5 % (21-46); MONOCYTES ABSOLUTE AUTO 0.88 K/mm3 (0.16-1.47); MONOCYTES PERCENT AUTO 5 % (4-13); Mean Corpuscular HGB 28.2 pg (26.0-34.0); Mean Corpuscular HGB Conc 29.9 g/dL (31.5-36.5); Mean Corpuscular Volume 94 fL (80-100); Mean Platelet Volume 11.1 fL (9.1-12.4); NEUTROPHILS ABSOLUTE AUTO 14.42 K/mm3 (1.96-9.15); NEUTROPHILS PERCENT AUTO 89 % (41-73); Platelet Count 176 K/mm3 (150-400); RDW Coefficient Variation 15.4 % (11.7-14.2); RDW Standard Deviation 53.7 fL (35.1-46.3); Red Blood Cell Count 3.97 M/mm3 (3.80-5.20); White Blood Cell Count 16.16 K/mm3 (4.00-11.30)
[2021-12-21 03:44] LABS: Albumin, Blood 2.9 g/dL (3.4-5.0); Albumin/Globulin Ratio 0.5 (0.8-1.8); Bilirubin, Total 0.4 mg/dL (0.1-1.0); Bun/Creatinine Ratio 31.3 (12.0-20.0); Calcium, Blood 9.3 mg/dL (8.5-10.1); Creatinine, Blood 1.63 mg/dL (0.40-1.00); Globulin, Blood 5.3 g/dL (2.2-4.0); Potassium, Blood 5.1 mmol/L (3.5-5.5); Total Protein, Blood 8.2 g/dL (6.4-8.2)
[2021-12-21 03:59] LABS: Influenza A, PCR NEGATIVE (NEGATIVE); Influenza B, PCR NEGATIVE (NEGATIVE); Resp Syncytial Virus, PCR NEGATIVE (NEGATIVE)
[2021-12-21 04:06] LABS: SARS-Cov-2 (COVID-19) PCR, MMC POSITIVE (NEGATIVE)
[2021-12-21 04:25] LABS: Source, Urine Straight Cath
[2021-12-21 04:28] LABS: Bilirubin, Urine Neg (Neg); Blood, Urine 1+ (Neg); Glucose Qualitative, Urine Neg (Neg); Ketones, Urine Neg (Neg); Leukocyte Esterase, Urine Neg (Neg); Nitrite, Urine Neg (Neg); Protein, Urine 2+ (Neg); Urobilinogen, Urine NORM (Normal)
[2021-12-21 04:39] LABS: Appearance, Urine Hazy (Clear); Color, Urine Yellow (P-Yellow)
[2021-12-21 04:41] LABS: Amorphous Mod (0-Heavy); Bacteria Few /hpf; Red Blood Cells, Urine Rare /hpf (0-2); Squamous Epithelial Cells Few /hpf (Few); White Blood Cells, Urine Not Seen /hpf (0-5)
[2021-12-21] MEDS ORDERED: AZIT250 PO (07:42)
[2021-12-21] MEDS ORDERED: AMOCLA875 PO (07:42)
== END 2021-12-21 09:26 | disposition home or self-care (01) ==
LOC: ER 02:14
PROVIDERS: Student in an Organized Health Care Education/Training Program
DX: U07.1 COVID-19 (principal); I12.9 Hypertensive chronic kidney disease with stage 1 through stage 4 chronic kidney disease, or unspecified chronic kidney disease; N18.9 Chronic kidney disease, unspecified; Z86.73 Personal history of transient ischemic attack (TIA), and cerebral infarction without residual deficits; Z79.82 Long term (current) use of aspirin; Z79.899 Other long term (current) drug therapy; Z88.1 Allergy status to other antibiotic agents; Z88.8 Allergy status to other drugs, medicaments and biological substances
CPT/HCPCS: 0241U; 36415; 71045; 80053; 81001; 83605; 84484; 85025; 87040; 87077; 87186; 93005; 93010; 96374; 96375; 99285-25; J0456; J0696; J7050; M0247

== ENCOUNTER 2021-12-26 16:27 | Inpatient (IN) | payer MEDICARE ==
[~2021-12-26] VITALS: Ht 172.7 cm; Wt 158.8 kg
[~2021-12-26 16:27] MED LIST changes: +AMOCLA875 PO; -ATORVASTATIN CA20 MG PO; +LOSA25 PO; +PSEU120ER PO
[2021-12-26 17:47] LABS: BASOPHILS PERCENT AUTO 1 % (0-2); EOSINOPHILS ABSOLUTE AUTO 0.32 K/mm3 (0.00-0.68); EOSINOPHILS PERCENT AUTO 2 % (0-6); Hematocrit 36.1 % (33.0-51.0); Hemoglobin 10.6 g/dL (11.5-16.0); IMMATURE GRAN ABSOLUTE AUTO 1.06 K/mm3 (0.00-0.10); IMMATURE GRAN PERCENT AUTO 6 % (0-1); LYMPHOCYTES ABSOLUTE AUTO 0.99 K/mm3 (0.84-5.20); LYMPHOCYTES PERCENT AUTO 6 % (21-46); MONOCYTES PERCENT AUTO 9 % (4-13); Mean Corpuscular HGB 28.4 pg (26.0-34.0); Mean Corpuscular HGB Conc 29.4 g/dL (31.5-36.5); Mean Corpuscular Volume 97 fL (80-100); Mean Platelet Volume 11.4 fL (9.1-12.4); NEUTROPHILS PERCENT AUTO 76 % (41-73); Platelet Count 322 K/mm3 (150-400); RDW Standard Deviation 57.4 fL (35.1-46.3); Red Blood Cell Count 3.73 M/mm3 (3.80-5.20); White Blood Cell Count 16.87 K/mm3 (4.00-11.30)
[2021-12-26 18:03] LABS: Albumin, Blood 2.1 g/dL (3.4-5.0); Albumin/Globulin Ratio 0.4 (0.8-1.8); Bilirubin, Total 0.6 mg/dL (0.1-1.0); Bun/Creatinine Ratio 30.5 (12.0-20.0); Calcium, Blood 9.6 mg/dL (8.5-10.1); Creatinine, Blood 2.56 mg/dL (0.40-1.00); Globulin, Blood 5.9 g/dL (2.2-4.0); Potassium, Blood 4.8 mmol/L (3.5-5.5)
[2021-12-26 18:30] LABS: Source, Urine Clean Catch
[2021-12-26 18:54] LABS: International Normalized Ratio 1.01; Prothrombin Time Results 10.6 Sec (9.7-11.5)
[2021-12-26 19:02] LABS: Bilirubin, Urine Neg (Neg); Blood, Urine Neg (Neg); Glucose Qualitative, Urine Neg (Neg); Ketones, Urine Neg (Neg); Leukocyte Esterase, Urine 2+ (Neg); Nitrite, Urine Neg (Neg); Protein, Urine 2+ (Neg); Urobilinogen, Urine NORM (Normal)
[2021-12-26 19:16] LABS: Appearance, Urine Hazy (Clear); Color, Urine Pale Yellow (P-Yellow)
[2021-12-26 19:17] LABS: Amorphous Light (0-Heavy); Bacteria Mod /hpf; Mucus Light (0-Heavy); Red Blood Cells, Urine 0-2 /hpf (0-2); Squamous Epithelial Cells Few /hpf (Few)
[2021-12-26 19:18] LABS: Granular Casts 0-2 /lpf (0); Hyaline Casts 0-2 /lpf (0-2)
[2021-12-26 19:34] LABS: BAND PERCENT MAN 1 % (0-8); BASOPHILS PERCENT MAN 0 % (0-2); EOSINOPHILS PERCENT MAN 3 % (0-6); LYMPHOCYTES ABSOLUTE MAN 1.34 K/mm3 (0.84-5.20); LYMPHOCYTES PERCENT MAN 8 % (21-46); MONOCYTES ABSOLUTE MAN 0.84 K/mm3 (0.16-1.47); MONOCYTES PERCENT MAN 5 % (4-13); MYELOCYTE ABSOLUTE MAN 0.84 K/mm3 (0.00-0.00); MYELOCYTE PERCENT MAN 5 % (0-0); NEUTROPHILS ABSOLUTE MAN 13.32 K/mm3 (1.96-9.15); SEG NEUTROPHILS PERCENT MAN 78 % (41-73); TOTAL CELLS COUNTED 100
[2021-12-27 04:59] LABS: Hematocrit 31.9 % (33.0-51.0); Hemoglobin 9.1 g/dL (11.5-16.0); Mean Corpuscular HGB 27.6 pg (26.0-34.0); Mean Corpuscular HGB Conc 28.5 g/dL (31.5-36.5); Mean Corpuscular Volume 97 fL (80-100); Mean Platelet Volume 10.4 fL (9.1-12.4); Platelet Count 268 K/mm3 (150-400); RDW Coefficient Variation 15.7 % (11.7-14.2); RDW Standard Deviation 55.8 fL (35.1-46.3); White Blood Cell Count 14.06 K/mm3 (4.00-11.30)
[2021-12-27 05:40] LABS: Albumin, Blood 1.7 g/dL (3.4-5.0); Albumin/Globulin Ratio 0.3 (0.8-1.8); Bilirubin, Total 0.5 mg/dL (0.1-1.0); Bun/Creatinine Ratio 32.6 (12.0-20.0); Calcium, Blood 9.1 mg/dL (8.5-10.1); Creatinine, Blood 2.3 mg/dL (0.40-1.00); Globulin, Blood 4.9 g/dL (2.2-4.0); Potassium, Blood 4.5 mmol/L (3.5-5.5); Total Protein, Blood 6.6 g/dL (6.4-8.2)
[2021-12-27 06:32] LABS: BAND PERCENT MAN 1 % (0-8); BASOPHILS PERCENT MAN 0 % (0-2); EOSINOPHILS ABSOLUTE MAN 0.14 K/mm3 (0.00-0.68); EOSINOPHILS PERCENT MAN 1 % (0-6); LYMPHOCYTES ABSOLUTE MAN 0.42 K/mm3 (0.84-5.20); LYMPHOCYTES PERCENT MAN 3 % (21-46); MONOCYTES ABSOLUTE MAN 0.84 K/mm3 (0.16-1.47); MONOCYTES PERCENT MAN 6 % (4-13); MYELOCYTE ABSOLUTE MAN 0.42 K/mm3 (0.00-0.00); MYELOCYTE PERCENT MAN 3 % (0-0); NEUTROPHILS ABSOLUTE MAN 12.23 K/mm3 (1.96-9.15); SEG NEUTROPHILS PERCENT MAN 86 % (41-73); TOTAL CELLS COUNTED 100
--- NOTE | 2021-12-27 07:42 | NUR ---
NEW ADMIT 12/27/2021. PATIENT HAS BILATERAL LYMPHEDEMA THAT IS PAINFUL TO TOUCH. REPORTED TO ONCOMING RN THE NEED FOR PAIN RELIEF ALTERNATIVES. PATIENT UNABLE TO AMUBULATE. PATIENT IS IN BERIATRIC BED ON CONTINUOUS IV FLUIDS. PATIENT IS ALSO ON TELE AND 2 L OF 02. NO COMPLAINTS DURING SHIFT REPORT.
--- NOTE | 2021-12-27 16:27 | NUR ---
PT HAS HAD COMPLAINTS OF PAIN, TRAMADOL ORDERED AND ADMIN. STATES IS BETTER. PT HAD COMPLAINTS OF BED BEEPING. HAVE TRIED MULTIPLE THINGS. SEEMS TO STOP FOR SOME TIME. THEN STARTS AGAIN. IF CANNOT GET FIXED, WILL TRY GET ANOTHER BED.
--- NOTE | 2021-12-27 18:24 | NUR ---
PT PLEASANT TODAY HOWEVER BED ISSUES ARE WORST ISSUE. WE ARE REPLACING BED DURING SHIFT CHANGE. SHE STATES NO SLEEP LAST NITE DUE TO THE BEEPING. WE HAVE TRIED SEVERAL ALTERATIONS TO NO AVAIL. NO OTHER CONCERNS NOTED TODAY. CONTINUES TO BE ON 2L O2. NO COUGH ENOUGH ABLE TO SPIT UP SAMPLE. BED IN LOW POSITION, CALL LITE IN REACH. CALLS APPROP
[2021-12-28 04:46] LABS: Hemoglobin 8.9 g/dL (11.5-16.0); Mean Corpuscular HGB 27.7 pg (26.0-34.0); Mean Corpuscular HGB Conc 28.7 g/dL (31.5-36.5); Mean Corpuscular Volume 97 fL (80-100); Mean Platelet Volume 10.2 fL (9.1-12.4); Platelet Count 279 K/mm3 (150-400); RDW Coefficient Variation 15.9 % (11.7-14.2); RDW Standard Deviation 56.4 fL (35.1-46.3); Red Blood Cell Count 3.21 M/mm3 (3.80-5.20)
[2021-12-28 05:13] LABS: Albumin, Blood 1.6 g/dL (3.4-5.0); Anion Gap 4 mmol/L (6-16); Blood Urea Nitrogen 62 mg/dL (8-24); Bun/Creatinine Ratio 33.3 (12.0-20.0); CO2, Blood 24 mmol/L (21-32); Calcium, Blood 9.2 mg/dL (8.5-10.1); Chloride, Blood 114 mmol/L (98-108); Creatinine, Blood 1.86 mg/dL (0.40-1.00); Glomerular Filtration Rate 26 (60-); Glucose, Blood 98 mg/dL (70-99); Phosphorus, Blood 3.6 mg/dL (2.5-4.9); Potassium, Blood 4.4 mmol/L (3.5-5.5); Sodium, Blood 142 mmol/L (136-145)
[2021-12-28 05:16] LABS: BAND PERCENT MAN 3 % (0-8); BASOPHILS PERCENT MAN 0 % (0-2); EOSINOPHILS ABSOLUTE MAN 0.24 K/mm3 (0.00-0.68); EOSINOPHILS PERCENT MAN 2 % (0-6); LYMPHOCYTES ABSOLUTE MAN 0.96 K/mm3 (0.84-5.20); LYMPHOCYTES PERCENT MAN 8 % (21-46); MONOCYTES ABSOLUTE MAN 1.57 K/mm3 (0.16-1.47); MONOCYTES PERCENT MAN 13 % (4-13); MYELOCYTE ABSOLUTE MAN 0.12 K/mm3 (0.00-0.00); MYELOCYTE PERCENT MAN 1 % (0-0); NEUTROPHILS ABSOLUTE MAN 9.19 K/mm3 (1.96-9.15); SEG NEUTROPHILS PERCENT MAN 73 % (41-73); TOTAL CELLS COUNTED 100
--- NOTE | 2021-12-28 06:33 | NUR ---
PATIENT ON 2 L NASAL CANNULA DURING SHIFT. PATIENT TRANSFERRED BY SLING TO NEW BED THAT IS NOT ALARMING. PATIENT HAS BEEN IN PAIN SINCE TRANSFER ON BLE. TRAMADOL GIVEN PRN FOR PAIN. PATIENT HAS HAD A LITTLE RESOLVE BUT STILL EXPERIENCES PAIN. EDEMA DECREASING WELL AN INCREASE IN DRAINAGE ON BLES. CLIENT SITTING UP IN BED APPEARS TO BE STABLE. WILL GIVE SHIFT REPORT TO ONCOMING NURSE UPON ARRIVAL.
--- NOTE | 2021-12-28 17:57 | NUR ---
SHIFT SUMMARY: PAIN POORLY CONTROLLED AFTER BED BATH THIS AFTERNOON. RECEIVED TWO 25 MCG DOSES OF FENTANYL AND TRAMADOL WITH LITTLE RELIEF. UNABLE TO DRESS BLE D/T PAIN. PHOTOGRAPHS OF BLE ARE IN CHART. NO EVENTS ON TELEMETRY. ON O2 @ 2 L/MIN NC, WHICH IS HER BASELINE; DECLINED COUGH MEDICINE R/T TASTE. USING PUREWICK FOR URINATION WITH GOOD OUTPUT. SPUTUM SPECIMEN SENT. USING CEILING LIFT FOR REPOSITIONING. BLE ELEVATED ON PILLOWS.
[2021-12-29 05:22] LABS: Hematocrit 31.6 % (33.0-51.0); Mean Corpuscular HGB 27.9 pg (26.0-34.0); Mean Corpuscular HGB Conc 28.5 g/dL (31.5-36.5); Mean Corpuscular Volume 98 fL (80-100); Mean Platelet Volume 10.1 fL (9.1-12.4); Platelet Count 288 K/mm3 (150-400); RDW Coefficient Variation 15.9 % (11.7-14.2); RDW Standard Deviation 57.2 fL (35.1-46.3); Red Blood Cell Count 3.23 M/mm3 (3.80-5.20); White Blood Cell Count 12.46 K/mm3 (4.00-11.30)
--- NOTE | 2021-12-29 05:24 | NUR ---
SHUFT SUMMARY: PATIENT IS REPORTING PAIN ON BUTTOCKS. T&P, FRANCES CARE WITH BARRIER CREAM ARE GIVEN DUE TO OPEN AREA BETWEEN BUTTOCKS. PATIENT REPORTS BUTTOCKS IS PAINFUL. TYLENOL IS ALSO GIVEN. HEART RATE IS OBSERVED ELEVATED TO 150-160'S WITH T&P. @ 0536, RATE INCREASED TO 151 WITH PVC'S X4 DURING T&P, VSS, PATIENT IS ASYMPTOMATIC.
[2021-12-29 05:35] LABS: Bun/Creatinine Ratio 31.3 (12.0-20.0); Calcium, Blood 8.8 mg/dL (8.5-10.1); Creatinine, Blood 1.5 mg/dL (0.40-1.00); Potassium, Blood 4.6 mmol/L (3.5-5.5)
--- NOTE | 2021-12-29 17:07 | NUR ---
PATIENT IS AWAKE,ALERT AND ORIENTED TIMES THREE. PAIN CONTROL. PATIENT WAS UPDATED ON THE PLAN OF CARE. PATIENT ATE 100% OF MEAL.
--- NOTE | 2021-12-30 04:18 | NUR ---
SHIFT SUMMARY: PATIENT CONTINUES TO REPORT PAIN IN BILAT LEGS AND BUTTOCKS. TYLENOL AND TRAMADOL ALTERNATED WITH T&P ARE EFFECTIVE FOR PAIN CONTROL, BILAT LE ARE WEEPING. WOUND CARE WAS GIVEN TO OPEN AREAS ON BUTTOCKS.
--- NOTE | 2021-12-30 12:45 | NUR ---
PATIENT HAD FAMILY MEMBER AT BEDSIDE, PLAN OF CARE WAS DISCUSS WITH PATIENT AND FAMILIY MEMBER AT BEDSIDE PER PATIENT REQUEST. PATIENT DENIES PAIN.
--- NOTE | 2021-12-30 17:26 | NUR ---
PATIENT IS AWAKE,ALERT AND ORIENTED TIME TWO. PAIN CONTROL. FAMILY VISIT PATIENT AT BEDSIDE. PATIENT ATE 25% OF MEAL. PATIENT REPOSITION FOR COMFORT.
[2021-12-30 23:59] LABS: Albumin, Blood 1.6 g/dL (3.4-5.0); Anion Gap 1 mmol/L (6-16); Blood Urea Nitrogen 36 mg/dL (8-24); Bun/Creatinine Ratio 31.3 (12.0-20.0); CO2, Blood 31 mmol/L (21-32); Calcium, Blood 9.3 mg/dL (8.5-10.1); Chloride, Blood 113 mmol/L (98-108); Creatinine, Blood 1.15 mg/dL (0.40-1.00); Glomerular Filtration Rate 45 (60-); Glucose, Blood 100 mg/dL (70-99); Magnesium, Blood 2.2 mg/dL (1.6-2.4); Phosphorus, Blood 2.3 mg/dL (2.5-4.9); Potassium, Blood 4.7 mmol/L (3.5-5.5); Sodium, Blood 145 mmol/L (136-145)
--- NOTE | 2021-12-31 01:06 | NUR ---
CARDIAC: @ 2300 TELI. TECH REPORTS PATIENT IS HAVING OCCASSIONAL VENTRICULAR BIGEMINY, APPROXIMATLY [address] DEWEY WAS NOTIFIED AND STAT LABS AND CALL RESULTS WHEN AVAILABLE WAS ORDERED. RESULTS WERE CALLED TO DR DODGE. AT THIS TIME TELI. IS SHOWING PVC'S, 3 IN A ROW. PATIENT IS ASYMPTOMATIC. NO NEW ORDERS AT THIS TIME CONTINUE TO MONITOR.
--- NOTE | 2021-12-31 07:46 | NUR ---
SHIFT SUMMARY: PATIENT CONTINUED TO HAVE PVC CLUSTERED IN 3, @ 0423 AND 0523. VSS, PATIENT WAS ASYMPTOMATIC. DR DODGE WAS NOTIFIED, NO NEW ORDERS. CONTINUE TO MONITOR.
--- NOTE | 2021-12-31 17:16 | NUR ---
Pt resting in bed upon arrival. Pt denies pain and dyspnea at this time. Spouse Johan at bedside. Listened as Pt and spouse express concerns regarding plan for D/C. They report having a caregiver that comes for 6 hours a day, but lately caregiver has not always been reliable. Caregiver's has dementia and has been requiring more attention at home. Offered suggestions and continued therapeutic listening. Discussed the importance of planing for the future and the potential that Pt may require more caregiver support. Pt and spouse also inquire about how to get the new urine catheter she currently has here at the hospital for at home. Instructed questions and concerns will be relayed to caremanager. No other concerns reported at this time. Spoke with Primary RN Liset and discussed case. Palliative Care will remain available.
--- NOTE | 2021-12-31 19:13 | NUR ---
SHIFT SUMMARY- PT IS A/O, PLESANT AND COOPERRANDY. SHE WORKED WITH PT THIS AFTERNOON. HER WAS AT BEDSIDE THIS AFTERNOON. SHE HAS A PURWIC IN PLACE IT IS DRAINING. SHE IS EATING AND DRINKING, APPETITE IS DIMINISHE. SHE HAD SOME NAUSEA THIS AFTERNOON TREATED PER MAR. HER BED IS IN THE LOW POSITION AND CALL LIGHT IS WITIN REACH
[2022-01-01 05:11] LABS: Hematocrit 32.7 % (33.0-51.0); Hemoglobin 9.5 g/dL (11.5-16.0); Mean Corpuscular HGB 27.9 pg (26.0-34.0); Mean Corpuscular HGB Conc 29.1 g/dL (31.5-36.5); Mean Corpuscular Volume 96 fL (80-100); Mean Platelet Volume 10.3 fL (9.1-12.4); Platelet Count 344 K/mm3 (150-400); RDW Coefficient Variation 15.4 % (11.7-14.2); RDW Standard Deviation 54.1 fL (35.1-46.3); Red Blood Cell Count 3.41 M/mm3 (3.80-5.20); White Blood Cell Count 16.95 K/mm3 (4.00-11.30)
[2022-01-01 05:15] LABS: International Normalized Ratio 1.13; Prothrombin Time Results 11.8 Sec (9.7-11.5)
--- NOTE | 2022-01-01 05:23 | NUR ---
PATIENT AXO X4. PATIENT REPORTED PAIN DURING SHIFT, PRN MEDICATION PROVIDED PER THE MAR. PATIENT CONTINUUES TO HAVE SINUS TACH WITH PVC'S AT 103. PATIENT IN BED WATCHING TV AT THE TIME OF REPORTING. WILL CONTINUE TO MONITOR AND REPORT TO ONCOMING NURSE UPON ARRIVAL.
[2022-01-01 05:29] LABS: BAND PERCENT MAN 6 % (0-8); BASOPHILS PERCENT MAN 0 % (0-2); EOSINOPHILS ABSOLUTE MAN 0.33 K/mm3 (0.00-0.68); EOSINOPHILS PERCENT MAN 2 % (0-6); LYMPHOCYTES ABSOLUTE MAN 1.52 K/mm3 (0.84-5.20); LYMPHOCYTES PERCENT MAN 9 % (21-46); METAMYELOCYTE ABSOLUTE MAN 0.16 K/mm3 (0.00-0.00); METAMYELOCYTE PERCENT MAN 1 % (0-0); MONOCYTES ABSOLUTE MAN 0.33 K/mm3 (0.16-1.47); MONOCYTES PERCENT MAN 2 % (4-13); MYELOCYTE ABSOLUTE MAN 0.16 K/mm3 (0.00-0.00); MYELOCYTE PERCENT MAN 1 % (0-0); SEG NEUTROPHILS PERCENT MAN 79 % (41-73); TOTAL CELLS COUNTED 100
[2022-01-01 06:30] LABS: Albumin, Blood 1.6 g/dL (3.4-5.0); Albumin/Globulin Ratio 0.3 (0.8-1.8); Bilirubin, Total 0.2 mg/dL (0.1-1.0); Bun/Creatinine Ratio 31.8 (12.0-20.0); C-REACTIVE PROTEIN, EXT RANGE 7.03 mg/dL (0.000-0.300); Calcium, Blood 9.1 mg/dL (8.5-10.1); Creatinine, Blood 1.1 mg/dL (0.40-1.00); Globulin, Blood 4.9 g/dL (2.2-4.0); Magnesium, Blood 2.1 mg/dL (1.6-2.4); Phosphorus, Blood 1.6 mg/dL (2.5-4.9); Potassium, Blood 4.4 mmol/L (3.5-5.5); Total Protein, Blood 6.5 g/dL (6.4-8.2)
--- NOTE | 2022-01-01 19:42 | NUR ---
SHIFT SUMMARY- PT IS A/O, PLESANT AND COOPERATIVE. HER APPETITE IS POOR. SHE IS RECIEVING D5W. HER AND DAUGHTER HAD A MEETING WITH THE WEAVING MACHINE OPERATOR THIS AFTERNOON. PUREWIC IN PLACE AND DRAINING. HER BED IS IN THE LOW POSITION AND CALL LIGHT IS WITIN REACH.
[2022-01-02 04:54] LABS: Hematocrit 31.7 % (33.0-51.0); Hemoglobin 9.2 g/dL (11.5-16.0); Mean Corpuscular HGB 28.3 pg (26.0-34.0); Mean Corpuscular Volume 98 fL (80-100); Mean Platelet Volume 10.4 fL (9.1-12.4); Platelet Count 287 K/mm3 (150-400); RDW Coefficient Variation 15.4 % (11.7-14.2); RDW Standard Deviation 55.3 fL (35.1-46.3); Red Blood Cell Count 3.25 M/mm3 (3.80-5.20); White Blood Cell Count 12.19 K/mm3 (4.00-11.30)
[2022-01-02 05:24] LABS: BAND PERCENT MAN 2 % (0-8); BASOPHILS PERCENT MAN 0 % (0-2); EOSINOPHILS ABSOLUTE MAN 0.48 K/mm3 (0.00-0.68); EOSINOPHILS PERCENT MAN 4 % (0-6); LYMPHOCYTES ABSOLUTE MAN 0.73 K/mm3 (0.84-5.20); LYMPHOCYTES PERCENT MAN 6 % (21-46); MONOCYTES ABSOLUTE MAN 0.85 K/mm3 (0.16-1.47); MONOCYTES PERCENT MAN 7 % (4-13); TOTAL CELLS COUNTED 100
[2022-01-02 05:25] LABS: Albumin, Blood 1.6 g/dL (3.4-5.0); Albumin/Globulin Ratio 0.3 (0.8-1.8); Bilirubin, Total 0.3 mg/dL (0.1-1.0); Bun/Creatinine Ratio 29.4 (12.0-20.0); Creatinine, Blood 1.02 mg/dL (0.40-1.00); Globulin, Blood 4.8 g/dL (2.2-4.0); Phosphorus, Blood 2.3 mg/dL (2.5-4.9); Total Protein, Blood 6.4 g/dL (6.4-8.2)
[2022-01-02 05:28] LABS: METAMYELOCYTE ABSOLUTE MAN 0.12 K/mm3 (0.00-0.00); METAMYELOCYTE PERCENT MAN 1 % (0-0); MYELOCYTE ABSOLUTE MAN 0.24 K/mm3 (0.00-0.00); MYELOCYTE PERCENT MAN 2 % (0-0); NEUTROPHILS ABSOLUTE MAN 9.75 K/mm3 (1.96-9.15); SEG NEUTROPHILS PERCENT MAN 78 % (41-73)
--- NOTE | 2022-01-02 06:21 | NUR ---
SHIFT SUMMARY PATIENT ALERT AND ORIENTED. MEDICATED PER EMAR FOR NAUSEA. HAD NO COMPLAINTS OF PAIN OR SHORTNESS OF BREATH. NO ACUTE ISSUES NOTED OVERNIGHT. CALL LIGHT WITHIN REACH. REPORT GIVEN TO ONCOMING RN.
--- NOTE | 2022-01-02 13:20 | NUR ---
Received referral from nurse customer care coordinator (Monica Coburn) on 12/31/2021. Patient is to discharge with orders for home health and elected [facility]. As patient is COVID positive, contacted patient via room phone today- 01/02/2022 at 1320 to further discuss the above. Patient states that "I believe they have me scheduled to go to [facility]". Informed patient that this travel writer would discuss with nurse customer care coordinator. Contacted patient's nurse customer care coordinator regarding the above. Per nurse customer care coordinator the plan is tentatively for patient to discharge to [facility], although approval has not been received yet. Discussed with nurse customer care coordinator that if patient is to discharge with home health services to please let this travel writer know. No further interventions required. Cinthya Knott Referral Liaison
--- NOTE | 2022-01-02 18:43 | NUR ---
SHIFT SUMMARY PT REMAIN NASUEAS. MEDICATED ONCE PER MAR. PT ATTAMPTED TO DRINK SEVERAL ENSURES. MEDICATED PER MAR. DENIED NEED FOR ZOFRAN THIS EVENING BUT STILL STATES LACK OF APPETITE. PT FEELING TO NASEAUS TO GET UP IN THE CHAIR TODAY OR TO WORK WITH PT. EXPECTED TO DC TO [facility] TOMORROW ONCE ROOM GET ORGANIZED.WILL CONTINUE TO MONITOR.
--- NOTE | 2022-01-03 06:46 | NUR ---
SHIFT SUMMARY: PATIENT REPORTS FRANCES AREA IRRITATION FROM PERWICK. PERWICK IS DC'D. PATIENT IS INC. OF URINE. POOR APPETITE, ATE 50% OF POPCICLE FOR SNACK. PATIENT IS RESISTANT TO T&P. FRANCES CARE IS GIVEN WITH BARRIER CREAM APPLIED. OPEN AREAS OBSERVED ON SACRUM AND BILAT BUTTOCKS. AREA IS CLEANSED AND ZINC PASTE IS APPLIED. PATIENT CONTINUES TO REPORT INTERMITTENT BLE PAIN. TRAMADOL IS GIVEN WITH GINNA EFFECT.
[2022-01-03] MEDS ORDERED: ALBU2.5V5 (10:29)
[2022-01-03] MEDS ORDERED: Acetaminophen325 M1 PO (10:30)
[2022-01-03] MEDS ORDERED: TAZICEF2 G2 IV (10:32)
[2022-01-03] MEDS ORDERED: DIABETIC T100 MG/5 M PO (10:35)
[2022-01-03] MEDS ORDERED: LACT PO (10:35)
[2022-01-03] MEDS ORDERED: ONDA4ODT MM (10:50)
[2022-01-03] MEDS ORDERED: PROM12.5S (10:51)
[2022-01-03] MEDS ORDERED: TRAM50 PO (10:53)
[2022-01-03] MEDS ORDERED: PSEUDOEPHEDRIN120 MG PO (10:53)
[2022-01-03] MEDS ORDERED: ERGO400 PO (10:55)
[2022-01-03] MEDS ORDERED: ZINC220 PO (10:55)
[2022-01-03] MEDS ORDERED: XARELTO PO (11:00)
[2022-01-03] MEDS ORDERED: ASCO500 PO (11:01)
--- NOTE | 2022-01-03 15:37 | NUR ---
DISCHARGE PT WAS TRANSFERRED TO [facility] AT 14:30. PT TRANSFERRED BY MIAN. ALL BELONING AND A FACE SHEET SENT ALONG WITH HER. POWERGLIDE IN PLACE FOR CONTINUED ABX THERAPY.
== END 2022-01-03 14:30 | DRG 871 ==
LOC: ER 16:27 → MEDS 21:35 → ENPENDDIS 01-03 10:15 → MEDS 01-03 14:30
PROVIDERS: Family Medicine; Internal Medicine; Student in an Organized Health Care Education/Training Program; ADMIT Internal Medicine
DX: A41.52 Sepsis due to Pseudomonas (principal); J96.21 Acute and chronic respiratory failure with hypoxia; U07.1 COVID-19; J12.82 Pneumonia due to coronavirus disease 2019; L03.116 Cellulitis of left lower limb; L03.115 Cellulitis of right lower limb; N17.9 Acute kidney failure, unspecified; E66.2 Morbid (severe) obesity with alveolar hypoventilation; R65.20 Severe sepsis without septic shock; N18.30 Chronic kidney disease, stage 3 unspecified; R63.0 Anorexia; I12.9 Hypertensive chronic kidney disease with stage 1 through stage 4 chronic kidney disease, or unspecified chronic kidney disease; I89.0 Lymphedema, not elsewhere classified; E88.09 Other disorders of plasma-protein metabolism, not elsewhere classified; E83.39 Other disorders of phosphorus metabolism; J45.909 Unspecified asthma, uncomplicated; Z90.49 Acquired absence of other specified parts of digestive tract; Z90.710 Acquired absence of both cervix and uterus; Z88.1 Allergy status to other antibiotic agents; Z91.09 Other allergy status, other than to drugs and biological substances; Z96.653 Presence of artificial knee joint, bilateral
CPT/HCPCS: 36415; 71045; 80048; 80053; 80069; 81001; 83605; 83735; 84100; 84145; 85025; 85027; 85610; 85651; 85730; 86140; 87040; 87070; 87086; 87205; 93005; 93010; 93306; 94760; 96365; 96375; 97110; 97163; 99285-25; A9270; J0713; J1650; J2405; J2543; J3010; J7030; J7042

== ENCOUNTER 2022-01-04 03:35 | Emergency (ER) | payer MEDICARE ==
[~2022-01-04] VITALS: Ht 172.7 cm; Wt 136.1 kg
[~2022-01-04 03:35] MED LIST changes: +ALBU2.5V5; +ASCO500 PO; +DIABETIC T100 MG/5 M PO; +ERGO400 PO; +LACT PO; +ONDA4ODT MM; +PROM12.5S; +PSEUDOEPHEDRIN120 MG PO; +TAZICEF2 G2 IV; +TRAM50 PO; +XARELTO PO; +ZINC220 PO
[2022-01-04 03:58] LABS: Hematocrit 27.1 % (33.0-51.0); Hemoglobin 7.6 g/dL (11.5-16.0); Mean Corpuscular HGB 28.1 pg (26.0-34.0); Mean Corpuscular Volume 100 fL (80-100); Mean Platelet Volume 10.9 fL (9.1-12.4); Platelet Count 357 K/mm3 (150-400); RDW Coefficient Variation 15.3 % (11.7-14.2); RDW Standard Deviation 56.4 fL (35.1-46.3); White Blood Cell Count 18.32 K/mm3 (4.00-11.30)
[2022-01-04 04:11] LABS: Albumin, Blood 1.6 g/dL (3.4-5.0); Albumin/Globulin Ratio 0.4 (0.8-1.8); Bilirubin, Total 0.3 mg/dL (0.1-1.0); Bun/Creatinine Ratio 43.6 (12.0-20.0); Calcium, Blood 8.5 mg/dL (8.5-10.1); Creatinine, Blood 0.96 mg/dL (0.40-1.00); Globulin, Blood 4.4 g/dL (2.2-4.0); Potassium, Blood 4.1 mmol/L (3.5-5.5)
[2022-01-04 04:25] LABS: BAND PERCENT MAN 5 % (0-8); BASOPHILS PERCENT MAN 0 % (0-2); EOSINOPHILS ABSOLUTE MAN 0.18 K/mm3 (0.00-0.68); EOSINOPHILS PERCENT MAN 1 % (0-6); LYMPHOCYTES ABSOLUTE MAN 1.64 K/mm3 (0.84-5.20); LYMPHOCYTES PERCENT MAN 9 % (21-46); METAMYELOCYTE ABSOLUTE MAN 0.18 K/mm3 (0.00-0.00); METAMYELOCYTE PERCENT MAN 1 % (0-0); MONOCYTES ABSOLUTE MAN 0.73 K/mm3 (0.16-1.47); MONOCYTES PERCENT MAN 4 % (4-13); NEUTROPHILS ABSOLUTE MAN 15.57 K/mm3 (1.96-9.15); SEG NEUTROPHILS PERCENT MAN 80 % (41-73); TOTAL CELLS COUNTED 100
[2022-01-04 06:51] LABS: Influenza A, PCR NEGATIVE (NEGATIVE); Influenza B, PCR NEGATIVE (NEGATIVE); Resp Syncytial Virus, PCR NEGATIVE (NEGATIVE)
[2022-01-04 07:16] LABS: SARS-Cov-2 (COVID-19) PCR, MMC POSITIVE (NEGATIVE)
[2022-01-04 08:35] LABS: Hematocrit 25.6 % (33.0-51.0); Hemoglobin 7.1 g/dL (11.5-16.0)
[2022-01-04 08:42] LABS: International Normalized Ratio 1.09; Prothrombin Time Results 11.4 Sec (9.7-11.5)
== END 2022-01-04 09:30 | disposition short-term general hospital (02) ==
LOC: ER 03:35
PROVIDERS: Student in an Organized Health Care Education/Training Program
DX: K92.2 Gastrointestinal hemorrhage, unspecified (principal); I12.9 Hypertensive chronic kidney disease with stage 1 through stage 4 chronic kidney disease, or unspecified chronic kidney disease; N18.9 Chronic kidney disease, unspecified; Z86.73 Personal history of transient ischemic attack (TIA), and cerebral infarction without residual deficits; Z86.16 Personal history of COVID-19; Z88.8 Allergy status to other drugs, medicaments and biological substances; Z88.1 Allergy status to other antibiotic agents
CPT/HCPCS: 0241U; 36415; 80053; 85014; 85018; 85025; 85610; 85730; 93005; 93010; C9113; J0713; J2405; J7030; J7168

== ENCOUNTER 2022-11-29 09:59 | Emergency (ER) | payer MEDICARE ==
[~2022-11-29] VITALS: Ht 172.7 cm; Wt 131.5 kg
[2022-11-29 10:32] LABS: BASOPHILS ABSOLUTE AUTO 0.03 K/mm3 (0.00-0.23); BASOPHILS PERCENT AUTO 1 % (0-2); EOSINOPHILS ABSOLUTE AUTO 0.26 K/mm3 (0.00-0.68); EOSINOPHILS PERCENT AUTO 5 % (0-6); Hematocrit 36.8 % (33.0-51.0); Hemoglobin 11.6 g/dL (11.5-16.0); IMMATURE GRAN ABSOLUTE AUTO 0.03 K/mm3 (0.00-0.10); IMMATURE GRAN PERCENT AUTO 1 % (0-1); LYMPHOCYTES ABSOLUTE AUTO 1.31 K/mm3 (0.84-5.20); LYMPHOCYTES PERCENT AUTO 23 % (21-46); MONOCYTES ABSOLUTE AUTO 0.51 K/mm3 (0.16-1.47); MONOCYTES PERCENT AUTO 9 % (4-13); Mean Corpuscular HGB 30.8 pg (26.0-34.0); Mean Corpuscular HGB Conc 31.5 g/dL (31.5-36.5); Mean Corpuscular Volume 98 fL (80-100); Mean Platelet Volume 10.9 fL (9.1-12.4); NEUTROPHILS ABSOLUTE AUTO 3.46 K/mm3 (1.96-9.15); NEUTROPHILS PERCENT AUTO 62 % (41-73); Platelet Count 177 K/mm3 (150-400); RDW Coefficient Variation 12.9 % (11.7-14.2); RDW Standard Deviation 46.6 fL (35.1-46.3); Red Blood Cell Count 3.77 M/mm3 (3.80-5.20)
[2022-11-29 11:05] LABS: Albumin, Blood 3.3 g/dL (3.4-5.0); Albumin/Globulin Ratio 0.7 (0.8-1.8); Bilirubin, Total 0.9 mg/dL (0.1-1.0); Bun/Creatinine Ratio 30.9 (12.0-20.0); Calcium, Blood 9.3 mg/dL (8.5-10.1); Creatinine, Blood 1.39 mg/dL (0.40-1.00); Globulin, Blood 4.6 g/dL (2.2-4.0); Magnesium, Blood 2.5 mg/dL (1.6-2.4); Thyroid Stimulating Hormone 3.1 uIU/mL (0.360-4.800); Total Protein, Blood 7.9 g/dL (6.4-8.2)
[2022-11-29 11:08] LABS: Influenza A, PCR NEGATIVE (NEGATIVE); Influenza B, PCR NEGATIVE (NEGATIVE); Resp Syncytial Virus, PCR NEGATIVE (NEGATIVE); SARS-Cov-2 (COVID-19) PCR, MMC NEGATIVE (NEGATIVE)
[2022-11-29] MEDS ORDERED: AZIT250 PO (13:54)
== END 2022-11-29 14:14 | disposition home or self-care (01) ==
LOC: ER 09:59
PROVIDERS: Student in an Organized Health Care Education/Training Program
DX: J18.9 Pneumonia, unspecified organism (principal); J06.9 Acute upper respiratory infection, unspecified; Z88.8 Allergy status to other drugs, medicaments and biological substances; Z88.1 Allergy status to other antibiotic agents; Z79.899 Other long term (current) drug therapy; J45.909 Unspecified asthma, uncomplicated; I10 Essential (primary) hypertension; E78.00 Pure hypercholesterolemia, unspecified
CPT/HCPCS: 0241U; 36415; 71046; 80053; 83735; 83880; 84443; 84484; 85025; 93005; 93010; 94640; 94664

== ENCOUNTER → 2023-08-26 | Outpatient (CLI) | payer MEDICARE ==
[2023-08-26 14:28] LABS: BASOPHILS ABSOLUTE AUTO 0.03 K/mm3 (0.00-0.23); BASOPHILS PERCENT AUTO 1 % (0-2); EOSINOPHILS ABSOLUTE AUTO 0.25 K/mm3 (0.00-0.68); EOSINOPHILS PERCENT AUTO 4 % (0-6); Hematocrit 37.7 % (33.0-51.0); Hemoglobin 11.5 g/dL (11.5-16.0); IMMATURE GRAN ABSOLUTE AUTO 0.03 K/mm3 (0.00-0.10); IMMATURE GRAN PERCENT AUTO 1 % (0-1); LYMPHOCYTES ABSOLUTE AUTO 1.66 K/mm3 (0.84-5.20); LYMPHOCYTES PERCENT AUTO 28 % (21-46); MONOCYTES ABSOLUTE AUTO 0.66 K/mm3 (0.16-1.47); MONOCYTES PERCENT AUTO 11 % (4-13); Mean Corpuscular HGB 30.1 pg (26.0-34.0); Mean Corpuscular HGB Conc 30.5 g/dL (31.5-36.5); Mean Corpuscular Volume 99 fL (80-100); Mean Platelet Volume 10.4 fL (9.1-12.4); NEUTROPHILS PERCENT AUTO 57 % (41-73); Platelet Count 148 K/mm3 (150-400); RDW Coefficient Variation 12.5 % (11.7-14.2); RDW Standard Deviation 45.1 fL (35.1-46.3); Red Blood Cell Count 3.82 M/mm3 (3.80-5.20); White Blood Cell Count 6.03 K/mm3 (4.00-11.30)
== END ==
LOC: LAB SHORT 14:25 → LAB 14:25
PROVIDERS: Family Medicine
DX: R53.83 Other fatigue (principal)
CPT/HCPCS: 85025

== ENCOUNTER 2023-09-22 08:24 | Inpatient (IN) | payer MEDICARE ==
[~2023-09-22] VITALS: Ht 172.7 cm; Wt 138.5 kg
[2023-09-22 09:03] LABS: BASOPHILS ABSOLUTE AUTO 0.03 K/mm3 (0.00-0.23); BASOPHILS PERCENT AUTO 0 % (0-2); EOSINOPHILS ABSOLUTE AUTO 0.02 K/mm3 (0.00-0.68); EOSINOPHILS PERCENT AUTO 0 % (0-6); Hematocrit 35.9 % (33.0-51.0); Hemoglobin 11.2 g/dL (11.5-16.0); IMMATURE GRAN PERCENT AUTO 1 % (0-1); LYMPHOCYTES ABSOLUTE AUTO 0.91 K/mm3 (0.84-5.20); LYMPHOCYTES PERCENT AUTO 6 % (21-46); MONOCYTES PERCENT AUTO 5 % (4-13); Mean Corpuscular HGB 30.2 pg (26.0-34.0); Mean Corpuscular HGB Conc 31.2 g/dL (31.5-36.5); Mean Corpuscular Volume 97 fL (80-100); Mean Platelet Volume 10.6 fL (9.1-12.4); NEUTROPHILS ABSOLUTE AUTO 14.65 K/mm3 (1.96-9.15); NEUTROPHILS PERCENT AUTO 88 % (41-73); Platelet Count 157 K/mm3 (150-400); RDW Coefficient Variation 12.6 % (11.7-14.2); RDW Standard Deviation 44.8 fL (35.1-46.3); Red Blood Cell Count 3.71 M/mm3 (3.80-5.20); White Blood Cell Count 16.61 K/mm3 (4.00-11.30)
[2023-09-22 09:20] LABS: Albumin, Blood 3.1 g/dL (3.4-5.0); Albumin/Globulin Ratio 0.6 (0.8-1.8); Bun/Creatinine Ratio 21.3 (12.0-20.0); Calcium, Blood 9.3 mg/dL (8.5-10.1); Creatinine, Blood 1.27 mg/dL (0.40-1.00); Globulin, Blood 4.9 g/dL (2.2-4.0)
[2023-09-22 09:24] LABS: Source, Urine Clean Catch
[2023-09-22 09:27] LABS: Appearance, Urine Hazy (Clear); Bilirubin, Urine Neg (Neg); Blood, Urine 2+ (Neg); Color, Urine Yellow (P-Yellow); Glucose Qualitative, Urine Neg (Neg); Ketones, Urine Neg (Neg); Leukocyte Esterase, Urine 3+ (Neg); Nitrite, Urine Pos (Neg); Protein, Urine 2+ (Neg); Specific Gravity, Urine 1.015 (1.003-1.022); Urobilinogen, Urine NORM (Normal)
[2023-09-22 09:34] LABS: Bacteria Many /hpf; Squamous Epithelial Cells Few /hpf (Few); White Blood Cells, Urine TNTC /hpf (0-5)
[2023-09-22 13:22] VITALS: BP 126/60
[2023-09-22] MEDS ORDERED: FURO20 PO (13:50)
[2023-09-22] MEDS ORDERED: BUSP5 PO (15:04)
[2023-09-22] MEDS ORDERED: Aldactone50 MG PO (15:05)
[2023-09-22 15:36] VITALS: BP 126/59
--- NOTE | 2023-09-22 18:33 | NUR ---
PT ARRIVED TO THE MEDICAL FLOOR FROM THE ER AROUND 1300. PT WAS TRANSFER FROM THE RND TO THE BED USEING THE SLIDING SHEET. THE PT AND HER FAMILY WERE ORIENTED TO THE ROOM LAYOUT AND CALL SYSTEM. THE PT IS DROWSY, OPENS HER EYES TO VERBAL STIMULI AND ANSWERS QUESTIONS APPROPRIATLY. PT SKIN CHECKED BY THIS RN AND THE FEED GRINDER, REDNESS NOTED ON PTS BUTTOCKS, NO PRESSURE ULCERS SEEN. PT'S BIOX IN THE LOW 90 % ON 2L/MIN O2. CALL LIGHT IN REACH. BED ALARM ON. PT HAS A POOR APPITITE, ONLY TOOK BITES FIR DINNER.
[2023-09-22 19:19] VITALS: BP 106/54
[2023-09-22] MEDS ORDERED: FLUTICASONE PRO16 GM (23:56)
[2023-09-22] MEDS ORDERED: AZELASTINE137 MCG/06 (23:58)
[2023-09-23 03:27] VITALS: BP 114/72
--- NOTE | 2023-09-23 04:50 | NUR ---
SHIFT SUMMARY RODRIGUEZ IS ALERT AND FULLY ORIENTED AT THE START OF SHIFT, SHE IS PLEASANT AND COOPERATIVE WITH CARE. FREQUENT PT REPOSITIONS. NO ACUTE EVENTS TONIGHT. MED RECONCILIATION INCOMPLETE, PENDING PT'S BRINGING IN HOME MED LIST PER DAY SHIFT REPORT. PT RESTING IN BED W/O COMPLAINT IN A LOW POSITION WITH THE CALL LIGHT IN REACH.
[2023-09-23 07:11] LABS: BASOPHILS ABSOLUTE AUTO 0.03 K/mm3 (0.00-0.23); BASOPHILS PERCENT AUTO 0 % (0-2); EOSINOPHILS ABSOLUTE AUTO 0.01 K/mm3 (0.00-0.68); EOSINOPHILS PERCENT AUTO 0 % (0-6); Hematocrit 31.2 % (33.0-51.0); Hemoglobin 9.4 g/dL (11.5-16.0); IMMATURE GRAN ABSOLUTE AUTO 0.06 K/mm3 (0.00-0.10); IMMATURE GRAN PERCENT AUTO 1 % (0-1); LYMPHOCYTES ABSOLUTE AUTO 1.12 K/mm3 (0.84-5.20); LYMPHOCYTES PERCENT AUTO 10 % (21-46); MONOCYTES ABSOLUTE AUTO 1.11 K/mm3 (0.16-1.47); MONOCYTES PERCENT AUTO 10 % (4-13); Mean Corpuscular HGB 29.8 pg (26.0-34.0); Mean Corpuscular HGB Conc 30.1 g/dL (31.5-36.5); Mean Corpuscular Volume 99 fL (80-100); Mean Platelet Volume 11.3 fL (9.1-12.4); NEUTROPHILS ABSOLUTE AUTO 9.21 K/mm3 (1.96-9.15); NEUTROPHILS PERCENT AUTO 80 % (41-73); Platelet Count 129 K/mm3 (150-400); RDW Coefficient Variation 12.8 % (11.7-14.2); RDW Standard Deviation 46.1 fL (35.1-46.3); Red Blood Cell Count 3.15 M/mm3 (3.80-5.20); White Blood Cell Count 11.54 K/mm3 (4.00-11.30)
[2023-09-23 07:15] VITALS: BP 119/63
[2023-09-23 08:15] LABS: Alanine Aminotransfer (ALT/SGP 12 U/L (12-78); Albumin, Blood 2.5 g/dL (3.4-5.0); Albumin/Globulin Ratio 0.6 (0.8-1.8); Alk Phos 69 U/L (50-136); Anion Gap Unable to Calculate mmol/L (6-16); Aspartate Aminotrans (AST/SGOT 15 U/L (12-37); Bilirubin, Total 1.1 mg/dL (0.1-1.0); Blood Urea Nitrogen 30 mg/dL (8-24); Bun/Creatinine Ratio 19.9 (12.0-20.0); CO2, Blood 38 mmol/L (21-32); Calcium, Blood 8.8 mg/dL (8.5-10.1); Chloride, Blood 105 mmol/L (98-108); Creatinine, Blood 1.51 mg/dL (0.40-1.00); Glomerular Filtration Rate 33 (60-); Glucose, Blood 102 mg/dL (70-99); Sodium, Blood 142 mmol/L (136-145); Total Protein, Blood 6.5 g/dL (6.4-8.2)
[2023-09-23 16:49] VITALS: BP 144/52
[2023-09-23 17:26] VITALS: BP 136/52
--- NOTE | 2023-09-23 17:59 | NUR ---
Patient alert & oriented x3. Patient worked with therapy early this morning, she was able to stand and take a few steps with OT. Encouraged patient to get OOB and sit in recliner, patient declined stated she was too exhasuted from morning therapy. PT came to work with patient this afternoon, patient declined stating she was too tired and her back hurt. Patient agreed to do exercies in bed. IV ABX and IV lasix administred. Vitals stable. Will contine plan of care.
[2023-09-23 19:34] VITALS: BP 122/55
[2023-09-24 03:37] VITALS: BP 142/76
--- NOTE | 2023-09-24 04:23 | NUR ---
SHIFT SUMMARY PATIENT HAD NO ACUTE CHANGES OBSERVED. AXOX 4 AND 1-2 ASSIST TO BSC. PIV REMAINS INTACT. PUREWICK IN PLACE. ON 2L O2 NC BASELINE. DENIES CHEST PAIN, SOB, AND N/V. VSS/AFEBRILE. CALL LIGHT IN REACH. BED IN LOWEST POSITION. WILL CONTINUE TO MONITOR UNTIL DAY SHIFT NURSE ASSUMES CARE.
[2023-09-24 05:42] LABS: BASOPHILS ABSOLUTE AUTO 0.03 K/mm3 (0.00-0.23); BASOPHILS PERCENT AUTO 0 % (0-2); EOSINOPHILS ABSOLUTE AUTO 0.21 K/mm3 (0.00-0.68); EOSINOPHILS PERCENT AUTO 3 % (0-6); Hematocrit 30.5 % (33.0-51.0); Hemoglobin 9.3 g/dL (11.5-16.0); IMMATURE GRAN ABSOLUTE AUTO 0.05 K/mm3 (0.00-0.10); IMMATURE GRAN PERCENT AUTO 1 % (0-1); LYMPHOCYTES ABSOLUTE AUTO 1.36 K/mm3 (0.84-5.20); LYMPHOCYTES PERCENT AUTO 18 % (21-46); MONOCYTES ABSOLUTE AUTO 0.98 K/mm3 (0.16-1.47); MONOCYTES PERCENT AUTO 13 % (4-13); Mean Corpuscular HGB 30.4 pg (26.0-34.0); Mean Corpuscular HGB Conc 30.5 g/dL (31.5-36.5); Mean Corpuscular Volume 100 fL (80-100); Mean Platelet Volume 11.2 fL (9.1-12.4); NEUTROPHILS ABSOLUTE AUTO 4.82 K/mm3 (1.96-9.15); NEUTROPHILS PERCENT AUTO 65 % (41-73); Platelet Count 124 K/mm3 (150-400); RDW Coefficient Variation 12.8 % (11.7-14.2); RDW Standard Deviation 46.6 fL (35.1-46.3); Red Blood Cell Count 3.06 M/mm3 (3.80-5.20); White Blood Cell Count 7.45 K/mm3 (4.00-11.30)
[2023-09-24 06:26] LABS: Alanine Aminotransfer (ALT/SGP 9 U/L (12-78); Albumin, Blood 2.3 g/dL (3.4-5.0); Albumin/Globulin Ratio 0.5 (0.8-1.8); Alk Phos 68 U/L (50-136); Anion Gap 7 mmol/L (6-16); Aspartate Aminotrans (AST/SGOT 16 U/L (12-37); Bilirubin, Total 0.5 mg/dL (0.1-1.0); Blood Urea Nitrogen 33 mg/dL (8-24); Bun/Creatinine Ratio 22.4 (12.0-20.0); CO2, Blood 32 mmol/L (21-32); Calcium, Blood 8.7 mg/dL (8.5-10.1); Chloride, Blood 102 mmol/L (98-108); Creatinine, Blood 1.47 mg/dL (0.40-1.00); Globulin, Blood 4.2 g/dL (2.2-4.0); Glomerular Filtration Rate 34 (60-); Glucose, Blood 112 mg/dL (70-99); Potassium, Blood 3.4 mmol/L (3.5-5.5); Sodium, Blood 141 mmol/L (136-145); Total Protein, Blood 6.5 g/dL (6.4-8.2)
[2023-09-24 07:32] VITALS: BP 125/46
--- NOTE | 2023-09-24 10:27 | NUR ---
NURSE NOTE: (VANOC) MED WAS STARTED. RECEIVED D.C ORDERS FOR MEDICATION, CLARIFIED WITH DR. THERESA VILLALTA TO STOP MEDICATION. MED STOPPED.
[2023-09-24 13:09] VITALS: BP 132/61
[2023-09-24 14:28] LABS: Calcium, Blood 8.6 mg/dL (8.5-10.1); Creatinine, Blood 1.39 mg/dL (0.40-1.00); Potassium, Blood 3.6 mmol/L (3.5-5.5)
--- NOTE | 2023-09-24 17:24 | NUR ---
SHIFT SUMMARY: PT IS AN 88 YEAR OLD FEMALE HERE BEING TREATED FOR UROSEPSIS. POSITIVE URINE AND BLOOD CULTURES; BEING TREATED WITH IV ANTIBIOTICS. SHE HAS REFUSED OT AND PT AND TO GET OUT OF BED TODAY. AND EVEN REFUSING REPOSITIONING AT TIMES. SHE IS SEVERELY EDEMATOUS IN HER LOWEST EXTREMTIES AND IS GETTING IV DIURETICS. SHE HAS A EXTERNAL CATHETER IN PLACE, NO BM, AND CHANGING ATTENDS WHERE WET. SHE IS IN BED, CALL LIGHT WITHIN REACH, NO SIGNS OR SYMPTOMS OF DISTRESS.
[2023-09-24 19:43] VITALS: BP 132/70
--- NOTE | 2023-09-25 04:20 | NUR ---
SHIFT SUMMARY PATIENT HAD NO ACUTE CHANGES. AXOX 4 AND BEDREST THIS SHIFT REPORTING TOO WEAK TO GET UP. PUREWICK IN PLACE. ON 2L O2 NC BASELINE. REPORTED LEG PAIN AND TYLENOL 650 MG GIVEN PER EMAR. DENIES CHEST PAIN, SOB, AND N/V. READING BOOKS ON ELECTRONIC DEVICE FIRST PART OF SHIFT. CALL LIGHT IN REACH. BED IN LOWEST POSITION. WILL CONTINUE TO MONITOR UNTIL DAY SHIFT NURSE ASSUME CARE.
[2023-09-25 05:09] VITALS: BP 118/61
[2023-09-25 05:35] LABS: BASOPHILS ABSOLUTE AUTO 0.03 K/mm3 (0.00-0.23); BASOPHILS PERCENT AUTO 1 % (0-2); EOSINOPHILS ABSOLUTE AUTO 0.35 K/mm3 (0.00-0.68); EOSINOPHILS PERCENT AUTO 6 % (0-6); Hematocrit 32.2 % (33.0-51.0); Hemoglobin 9.8 g/dL (11.5-16.0); IMMATURE GRAN ABSOLUTE AUTO 0.02 K/mm3 (0.00-0.10); IMMATURE GRAN PERCENT AUTO 0 % (0-1); LYMPHOCYTES ABSOLUTE AUTO 1.43 K/mm3 (0.84-5.20); LYMPHOCYTES PERCENT AUTO 24 % (21-46); MONOCYTES ABSOLUTE AUTO 0.73 K/mm3 (0.16-1.47); MONOCYTES PERCENT AUTO 12 % (4-13); Mean Corpuscular HGB 29.9 pg (26.0-34.0); Mean Corpuscular HGB Conc 30.4 g/dL (31.5-36.5); Mean Corpuscular Volume 98 fL (80-100); Mean Platelet Volume 11.2 fL (9.1-12.4); NEUTROPHILS ABSOLUTE AUTO 3.41 K/mm3 (1.96-9.15); NEUTROPHILS PERCENT AUTO 57 % (41-73); Platelet Count 151 K/mm3 (150-400); RDW Coefficient Variation 12.7 % (11.7-14.2); RDW Standard Deviation 45.6 fL (35.1-46.3); Red Blood Cell Count 3.28 M/mm3 (3.80-5.20); White Blood Cell Count 5.97 K/mm3 (4.00-11.30)
[2023-09-25 05:58] LABS: Albumin, Blood 2.5 g/dL (3.4-5.0); Albumin/Globulin Ratio 0.6 (0.8-1.8); Bilirubin, Total 0.6 mg/dL (0.1-1.0); Bun/Creatinine Ratio 23.6 (12.0-20.0); Calcium, Blood 8.8 mg/dL (8.5-10.1); Creatinine, Blood 1.44 mg/dL (0.40-1.00); Globulin, Blood 4.3 g/dL (2.2-4.0); Potassium, Blood 3.9 mmol/L (3.5-5.5); Total Protein, Blood 6.8 g/dL (6.4-8.2)
[2023-09-25 07:44] VITALS: BP 106/65
[2023-09-25 14:32] VITALS: BP 123/59
--- NOTE | 2023-09-25 14:36 | NUR ---
DISCHARGE ORDERS WERE PLACED ON THE PATIENT BY DR. JACOME. PLAN IS TO HAVE THE PATIENT DISCHARGE TOMORROW PER PATIENT AND REQUEST AND STILL FIGUING OUT MEDICAL TRANSPORT. OKAY TO CANCEL D/C ORDERS AND WILL AWAIT NEW ORDERS FOR PREPARATION FOR DISCHARGE TOMORROW.
--- NOTE | 2023-09-25 18:08 | NUR ---
SHIFT SUMMARY: PT IS AN 88 YEAR OLD FEMALE HERE FOR TREATED OF UROSEPSIS. SHE HAS RESPONDED TO IV ANTIBIOTIC TREATMENT AND PLANS TO DISCHARGE TOMORROW. SHE IS ALERT AND ORIENTED AND DID GET UP WITH PHYSICAL THERAPY TODAY. SHE HAS NO IV ACCESS PER ORDER AND CONTINUES TO USE THE PUREWICK EXTERNAL CATHETER SYSTEM. DISCHARGE HAS ALREADY BEEN ORDERED (NOT COMPLETED) AND MED REC IN HER CHART. SHE IS IN BED, EATING DINNER, CALL LIGHT WITHIN REACH, NO SIGNS OR SYMPTOMS OF DISTRESS. PLAN OF CARE ONGOING.
[2023-09-25 19:15] VITALS: BP 151/59
[2023-09-26 02:48] VITALS: BP 134/75
--- NOTE | 2023-09-26 04:58 | NUR ---
SHIFT SUMMARY 88 YR F ADMITTED ON 09/22/23 FOR UROSEPSIS. DNR. NO ACUTE CHANGES THIS SHIFT. NO C/O PAIN OR DISCOMFORT. PT STATES SHE IS LOOKING FORWARD TO GOING HOME THIS MORNING. SHE SLEPT SOME LAST NIGHT BUT WAS UP MOST OF THE NIGHT READING ON HER IPAD.
[2023-09-26 05:24] LABS: BASOPHILS ABSOLUTE AUTO 0.02 K/mm3 (0.00-0.23); BASOPHILS PERCENT AUTO 0 % (0-2); EOSINOPHILS PERCENT AUTO 8 % (0-6); Hemoglobin 9.9 g/dL (11.5-16.0); IMMATURE GRAN ABSOLUTE AUTO 0.05 K/mm3 (0.00-0.10); IMMATURE GRAN PERCENT AUTO 1 % (0-1); LYMPHOCYTES ABSOLUTE AUTO 1.23 K/mm3 (0.84-5.20); LYMPHOCYTES PERCENT AUTO 26 % (21-46); MONOCYTES ABSOLUTE AUTO 0.73 K/mm3 (0.16-1.47); MONOCYTES PERCENT AUTO 15 % (4-13); Mean Corpuscular HGB 29.7 pg (26.0-34.0); Mean Corpuscular Volume 99 fL (80-100); Mean Platelet Volume 11.1 fL (9.1-12.4); NEUTROPHILS ABSOLUTE AUTO 2.33 K/mm3 (1.96-9.15); NEUTROPHILS PERCENT AUTO 49 % (41-73); Platelet Count 165 K/mm3 (150-400); RDW Coefficient Variation 12.4 % (11.7-14.2); RDW Standard Deviation 45.1 fL (35.1-46.3); Red Blood Cell Count 3.33 M/mm3 (3.80-5.20); White Blood Cell Count 4.76 K/mm3 (4.00-11.30)
[2023-09-26 06:07] LABS: Albumin, Blood 2.4 g/dL (3.4-5.0); Albumin/Globulin Ratio 0.6 (0.8-1.8); Bilirubin, Total 0.4 mg/dL (0.1-1.0); Bun/Creatinine Ratio 23.9 (12.0-20.0); Calcium, Blood 8.9 mg/dL (8.5-10.1); Creatinine, Blood 1.38 mg/dL (0.40-1.00); Globulin, Blood 4.3 g/dL (2.2-4.0); Potassium, Blood 3.9 mmol/L (3.5-5.5); Total Protein, Blood 6.7 g/dL (6.4-8.2)
[2023-09-26 07:11] VITALS: BP 123/66
--- NOTE | 2023-09-26 08:23 | NUR ---
NOTE: PATIENT HAS SCHEDULE IV ABX (ROCEPHIN) TO BE GIVEN AT 0900. PATIENT DOES NOT HAVE IV ACCESS PER ORDER. PER PATIENT "I'M GOING HOME TODAY AND I DON'T WANNA BE POKE ANYMORE." CALLED DR. JACOME REGARDING THIS ISSUE. RECEIVED ORDER TO DC'D IV ABX (ROCEPHIN) SCHEDULED THIS AM.
[2023-09-26] MEDS ORDERED: Cefpodoxime Pr100 MG PO (11:41)
[2023-09-26] MEDS ORDERED: LOSA25 PO (11:42)
[2023-09-26] MEDS ORDERED: METO25ER PO (11:42)
[2023-09-26] MEDS ORDERED: K-TAB ER20 ME1 PO (11:43)
--- NOTE | 2023-09-26 14:47 | NUR ---
SHIFT/DISCHARGE SUMMARY: PATIENT A/OX4. ANSWER TO QUESTIONS APPROPRIATELY AND ABLE TO MAKE NEEDS KNOWN. PATIENT IS CALM, PLEASANT AND COOPERATIVE c CARE PROVIDED. PATIENT DENIES CP/PRESSURE, SOB, N/V, DIZZINESS AND GENERALIZED PAIN. PATIENT RECEIVED SCHEDULED MEDS PER EMAR. PATIENT IS INCONTINENCE OF BLADDER, FRANCES CARE, ATTENDS AND PUREWICK SYSTEM PLACED. PATIENT IS EATING AND DRINKING WELL, NO BM THIS SHIFT. PATIENT HAS NO IV ACCESS PER ORDER. VITAL SIGNS REVIEWED. PATIENT DENIES ANY NEW CONCERN THIS SHIFT. PATIENT DISCHARGE HOME. DISCHARGE INSTRUCTIONS PACKET GIVEN TO PATIENT. EDUCATE PATIENT REGARDING ADMITTING DX'S OF SEPSIS D/T UTI, S/S, TX, SELF CARE, NEW PRESCRIBED MEDS, HH SERVICES AND TO FOLLOW c PCP. PATIENT VERBALIZED UNDERSTANDING AND NO FURTHER QUESTIONS. RX WAS FAXED TO PATIENT PREFERRED PHARMACY ([facility]). ALL PATIENT PERSONAL BELONGINGS WERE SENT HOME c THE PATIENT. PATIENT LEFT THE ROOM AT 1445 AND WAS TRANSPORTED BY VISITING NURSE STAFF, CHRISTIN JACKSON TO PATIENT ENTRANCE. RIDES WAS SET UP BY SPOUSE THROUGH [employer].
== END 2023-09-26 14:48 | disposition home health service (06) | DRG 871 ==
LOC: ER 08:24 → MEDS 10:54 → ENPENDDIS 09-26 11:04 → MEDS 09-26 14:48
PROVIDERS: Emergency Medicine; Internal Medicine; ADMIT Family Medicine
DX: A40.1 Sepsis due to streptococcus, group B (principal); I50.33 Acute on chronic diastolic (congestive) heart failure; N39.0 Urinary tract infection, site not specified; J84.9 Interstitial pulmonary disease, unspecified; Z68.42 Body mass index [BMI] 45.0-49.9, adult; I13.0 Hypertensive heart and chronic kidney disease with heart failure and stage 1 through stage 4 chronic kidney disease, or unspecified chronic kidney disease; Z66 Do not resuscitate; A41.81 Sepsis due to Enterococcus; A41.59 Other Gram-negative sepsis; I89.0 Lymphedema, not elsewhere classified; E66.01 Morbid (severe) obesity due to excess calories; I27.81 Cor pulmonale (chronic); I27.29 Other secondary pulmonary hypertension; D63.1 Anemia in chronic kidney disease; E78.00 Pure hypercholesterolemia, unspecified; J45.909 Unspecified asthma, uncomplicated; N18.30 Chronic kidney disease, stage 3 unspecified; F41.1 Generalized anxiety disorder; Z96.1 Presence of intraocular lens; Z96.653 Presence of artificial knee joint, bilateral; Z74.01 Bed confinement status; Z88.1 Allergy status to other antibiotic agents; Z88.8 Allergy status to other drugs, medicaments and biological substances; Z86.73 Personal history of transient ischemic attack (TIA), and cerebral infarction without residual deficits; Z99.81 Dependence on supplemental oxygen
CPT/HCPCS: 36415; 71045; 80048; 80053; 80202; 81001; 83605; 85025; 87040; 87077; 87086; 87147; 87186; 93306; 94760; 96365; 96366; 96375; 97110; 97162; 97165; 97530; 99285-25; A9270; J0696; J1650; J1940; J2405; J3370; J7030; J7050; P9612

== ENCOUNTER 2023-10-10 11:16 | Emergency (ER) | payer MEDICARE ==
[~2023-10-10] VITALS: Ht 172.7 cm; Wt 131.5 kg
[~2023-10-10 11:16] MED LIST changes: +AZELASTINE137 MCG/06; +Aldactone50 MG PO; +BUSP5 PO; +Cefpodoxime Pr100 MG PO; +FLUTICASONE PRO16 GM; +K-TAB ER20 ME1 PO; +METO25ER PO
[2023-10-10 13:06] LABS: BASOPHILS ABSOLUTE AUTO 0.03 K/mm3 (0.00-0.23); BASOPHILS PERCENT AUTO 1 % (0-2); EOSINOPHILS ABSOLUTE AUTO 0.17 K/mm3 (0.00-0.68); EOSINOPHILS PERCENT AUTO 3 % (0-6); Hematocrit 30.8 % (33.0-51.0); Hemoglobin 9.4 g/dL (11.5-16.0); IMMATURE GRAN ABSOLUTE AUTO 0.02 K/mm3 (0.00-0.10); IMMATURE GRAN PERCENT AUTO 0 % (0-1); LYMPHOCYTES ABSOLUTE AUTO 1.13 K/mm3 (0.84-5.20); LYMPHOCYTES PERCENT AUTO 18 % (21-46); MONOCYTES ABSOLUTE AUTO 0.61 K/mm3 (0.16-1.47); MONOCYTES PERCENT AUTO 10 % (4-13); Mean Corpuscular HGB 29.9 pg (26.0-34.0); Mean Corpuscular HGB Conc 30.5 g/dL (31.5-36.5); Mean Corpuscular Volume 98 fL (80-100); Mean Platelet Volume 11.2 fL (9.1-12.4); NEUTROPHILS ABSOLUTE AUTO 4.25 K/mm3 (1.96-9.15); NEUTROPHILS PERCENT AUTO 69 % (41-73); Platelet Count 120 K/mm3 (150-400); RDW Coefficient Variation 12.7 % (11.7-14.2); RDW Standard Deviation 45.6 fL (35.1-46.3); Red Blood Cell Count 3.14 M/mm3 (3.80-5.20); White Blood Cell Count 6.21 K/mm3 (4.00-11.30)
[2023-10-10 13:13] LABS: Source, Urine Straight Cath
[2023-10-10 13:22] LABS: Appearance, Urine Cloudy (Clear); Bilirubin, Urine Neg (Neg); Blood, Urine 2+ (Neg); Color, Urine Yellow (P-Yellow); Glucose Qualitative, Urine Neg (Neg); Ketones, Urine Neg (Neg); Leukocyte Esterase, Urine 3+ (Neg); Nitrite, Urine Pos (Neg); Protein, Urine 2+ (Neg); Specific Gravity, Urine 1.015 (1.003-1.022); Urobilinogen, Urine NORM (Normal); pH, Urine 6.5 (5.0-8.0)
[2023-10-10 13:29] LABS: Albumin, Blood 2.8 g/dL (3.4-5.0); Albumin/Globulin Ratio 0.7 (0.8-1.8); Bun/Creatinine Ratio 22.3 (12.0-20.0); Calcium, Blood 9.1 mg/dL (8.5-10.1); Creatinine, Blood 1.21 mg/dL (0.40-1.00); Total Protein, Blood 6.8 g/dL (6.4-8.2)
[2023-10-10 14:56] LABS: Bacteria Many /hpf; Squamous Epithelial Cells Few /hpf (Few); White Blood Cells, Urine TNTC /hpf (0-5)
[2023-10-10 15:15] VITALS: BP 115/65
[2023-10-10] MEDS ORDERED: Bactrim Ds Tab1 EACH PO (15:15)
== END 2023-10-10 15:56 | disposition home or self-care (01) ==
LOC: ER 11:16
PROVIDERS: Emergency Medicine
DX: S09.90XA Unspecified injury of head, initial encounter (principal); S89.91XA Unspecified injury of right lower leg, initial encounter; W19.XXXA Unspecified fall, initial encounter; N39.0 Urinary tract infection, site not specified; Z99.81 Dependence on supplemental oxygen; Z96.651 Presence of right artificial knee joint
CPT/HCPCS: 70450; 73560-RT; 80053; 81001; 85025; 87077; 87086; 87186; 99284-25; A9270

== ENCOUNTER → 2023-11-04 | Outpatient (CLI) | payer MEDICARE ==
[~2023-11-04] MED LIST changes: +Bactrim Ds Tab1 EACH PO
[2023-11-04 13:26] LABS: BASOPHILS ABSOLUTE AUTO 0.03 K/mm3 (0.00-0.23); BASOPHILS PERCENT AUTO 1 % (0-2); EOSINOPHILS PERCENT AUTO 4 % (0-6); Hematocrit 33.9 % (33.0-51.0); Hemoglobin 10.4 g/dL (11.5-16.0); IMMATURE GRAN ABSOLUTE AUTO 0.02 K/mm3 (0.00-0.10); IMMATURE GRAN PERCENT AUTO 0 % (0-1); LYMPHOCYTES ABSOLUTE AUTO 1.36 K/mm3 (0.84-5.20); LYMPHOCYTES PERCENT AUTO 26 % (21-46); MONOCYTES ABSOLUTE AUTO 0.48 K/mm3 (0.16-1.47); MONOCYTES PERCENT AUTO 9 % (4-13); Mean Corpuscular HGB 30.1 pg (26.0-34.0); Mean Corpuscular HGB Conc 30.7 g/dL (31.5-36.5); Mean Corpuscular Volume 98 fL (80-100); Mean Platelet Volume 11.1 fL (9.1-12.4); NEUTROPHILS PERCENT AUTO 60 % (41-73); Platelet Count 165 K/mm3 (150-400); RDW Coefficient Variation 13.3 % (11.7-14.2); RDW Standard Deviation 47.3 fL (35.1-46.3); Red Blood Cell Count 3.46 M/mm3 (3.80-5.20); White Blood Cell Count 5.29 K/mm3 (4.00-11.30)
[2023-11-04 15:59] LABS: Albumin, Blood 2.9 g/dL (3.4-5.0); Albumin/Globulin Ratio 0.7 (0.8-1.8); Bilirubin, Total 0.5 mg/dL (0.1-1.0); Bun/Creatinine Ratio 23.3 (12.0-20.0); Creatinine, Blood 1.29 mg/dL (0.40-1.00); Globulin, Blood 4.2 g/dL (2.2-4.0); Percent Saturation 22.8 % (15.0-50.0); Potassium, Blood 3.4 mmol/L (3.5-5.5); Total Protein, Blood 7.1 g/dL (6.4-8.2)
== END ==
LOC: LAB SHORT 12:26 → LAB 12:26
PROVIDERS: Physician Assistant
DX: D64.9 Anemia, unspecified (principal); I50.9 Heart failure, unspecified
CPT/HCPCS: 80053; 82728; 83540; 83550; 85025

== ENCOUNTER → 2024-05-04 | Outpatient (CLI) | payer MEDICARE ==
[2024-05-04 14:33] LABS: BASOPHILS ABSOLUTE AUTO 0.04 K/mm3 (0.00-0.23); BASOPHILS PERCENT AUTO 1 % (0-2); EOSINOPHILS ABSOLUTE AUTO 0.48 K/mm3 (0.00-0.68); EOSINOPHILS PERCENT AUTO 6 % (0-6); Hematocrit 36.1 % (33.0-51.0); Hemoglobin 10.4 g/dL (11.5-16.0); IMMATURE GRAN ABSOLUTE AUTO 0.04 K/mm3 (0.00-0.10); IMMATURE GRAN PERCENT AUTO 1 % (0-1); LYMPHOCYTES PERCENT AUTO 16 % (21-46); MONOCYTES ABSOLUTE AUTO 0.94 K/mm3 (0.16-1.47); MONOCYTES PERCENT AUTO 11 % (4-13); Mean Corpuscular HGB 28.2 pg (26.0-34.0); Mean Corpuscular HGB Conc 28.8 g/dL (31.5-36.5); Mean Corpuscular Volume 98 fL (80-100); Mean Platelet Volume 11.6 fL (9.1-12.4); NEUTROPHILS ABSOLUTE AUTO 5.41 K/mm3 (1.96-9.15); NEUTROPHILS PERCENT AUTO 66 % (41-73); Platelet Count 200 K/mm3 (150-400); RDW Standard Deviation 49.7 fL (35.1-46.3); Red Blood Cell Count 3.69 M/mm3 (3.80-5.20); White Blood Cell Count 8.21 K/mm3 (4.00-11.30)
[2024-05-04 14:54] LABS: Albumin, Blood 2.8 g/dL (3.4-5.0); Albumin/Globulin Ratio 0.6 (0.8-1.8); Bilirubin, Total 1.1 mg/dL (0.1-1.0); Bun/Creatinine Ratio 19.4 (12.0-20.0); Calcium, Blood 9.1 mg/dL (8.5-10.1); Creatinine, Blood 1.29 mg/dL (0.40-1.00); Globulin, Blood 4.8 g/dL (2.2-4.0); Potassium, Blood 4.3 mmol/L (3.5-5.5); Total Protein, Blood 7.6 g/dL (6.4-8.2)
== END | disposition home or self-care (01) ==
LOC: LAB SHORT 12:58 → LAB 12:58
PROVIDERS: Physician Assistant
DX: I11.0 Hypertensive heart disease with heart failure (principal); I50.9 Heart failure, unspecified; D64.89 Other specified anemias
CPT/HCPCS: 80053; 83880; 85025

== ENCOUNTER → 2024-08-19 | Outpatient (CLI) | payer MEDICARE ==
[2024-08-19 17:48] LABS: Albumin, Blood 3.1 g/dL (3.4-5.0); Albumin/Globulin Ratio 0.7 (0.8-1.8); Bilirubin, Total 0.6 mg/dL (0.1-1.0); Bun/Creatinine Ratio 21.3 (12.0-20.0); Calcium, Blood 9.4 mg/dL (8.5-10.1); Creatinine, Blood 1.36 mg/dL (0.40-1.00); Globulin, Blood 4.5 g/dL (2.2-4.0); Potassium, Blood 3.8 mmol/L (3.5-5.5); Total Protein, Blood 7.6 g/dL (6.4-8.2)
[2024-08-19 17:50] LABS: BASOPHILS ABSOLUTE AUTO 0.02 K/mm3 (0.00-0.23); BASOPHILS PERCENT AUTO 0 % (0-2); EOSINOPHILS PERCENT AUTO 5 % (0-6); Hematocrit 33.2 % (33.0-51.0); Hemoglobin 10.2 g/dL (11.5-16.0); IMMATURE GRAN ABSOLUTE AUTO 0.02 K/mm3 (0.00-0.10); IMMATURE GRAN PERCENT AUTO 0 % (0-1); LYMPHOCYTES ABSOLUTE AUTO 1.65 K/mm3 (0.84-5.20); LYMPHOCYTES PERCENT AUTO 28 % (21-46); MONOCYTES ABSOLUTE AUTO 0.68 K/mm3 (0.16-1.47); MONOCYTES PERCENT AUTO 12 % (4-13); Mean Corpuscular HGB 29.1 pg (26.0-34.0); Mean Corpuscular HGB Conc 30.7 g/dL (31.5-36.5); Mean Corpuscular Volume 95 fL (80-100); Mean Platelet Volume 11.3 fL (9.1-12.4); NEUTROPHILS PERCENT AUTO 55 % (41-73); Platelet Count 154 K/mm3 (150-400); RDW Coefficient Variation 13.8 % (11.7-14.2); RDW Standard Deviation 48.2 fL (35.1-46.3); White Blood Cell Count 5.87 K/mm3 (4.00-11.30)
[2024-08-19 18:02] LABS: Albumin, Blood 3.1 g/dL (3.4-5.0); Anion Gap 9 mmol/L (3-11); Blood Urea Nitrogen 29 mg/dL (8-24); Bun/Creatinine Ratio 20.7 (12.0-20.0); CO2, Blood 35 mmol/L (21-32); Calcium, Blood 9.5 mg/dL (8.5-10.1); Chloride, Blood 101 mmol/L (98-108); Glomerular Filtration Rate 36 (60-); Glucose, Blood 91 mg/dL (70-99); Phosphorus, Blood 2.6 mg/dL (2.5-4.9); Potassium, Blood 3.8 mmol/L (3.5-5.5); Sodium, Blood 141 mmol/L (136-145)
== END ==
LOC: LAB 16:47 → LAB SHORT 16:47
PROVIDERS: Internal Medicine Nephrology
DX: N18.30 Chronic kidney disease, stage 3 unspecified (principal); E78.5 Hyperlipidemia, unspecified; D63.1 Anemia in chronic kidney disease
CPT/HCPCS: 80053; 80069; 85018; 85025